=== PATIENT | male | born 1970 | race Caucasian/White ===

== ENCOUNTER → 2016-04-23 | Outpatient (REF) | payer BC, OTHER ==
[2016-04-23 12:27] LABS: MEAN CORPUSCULAR HEMOGLOBIN 28.2 pg (27.0-33.0); MEAN CORPUSCULAR VOLUME 82.9 fl (80.0-96.0); RED CELL DISTRIBUTION WIDTH 13.4 % (11.5-14.5); WHITE BLOOD COUNT 8.6 K/mm3 (4.0-10.0)
[2016-04-23 12:43] LABS: FREE T4 1.17 NG/DL (0.76-1.46); URIC ACID 6.8 MG/DL (3.5-7.2)
[2016-04-23 12:52] LABS: ERYTHROCYTE SEDIMENTATION RATE 1 mm/hr (0-15)
[2016-04-23 13:03] LABS: BASOPHILS 3 % (0-4); EOSINOPHILS 1 % (0-5)
[2016-04-25 00:06] LABS: Lyme Disease IgG/IgM Antibodie <0.91 ISR (0.00-0.90); Lyme Disease IgM Ab Quantitati <0.80 index (0.00-0.79)
== END ==
LOC: M LABDRAW1 11:37
PROVIDERS: ATTEND Orthopaedic Surgery
DX: M25.572 Pain in left ankle and joints of left foot (principal)

== ENCOUNTER 2016-06-29 16:07 | Emergency (ER) | payer BC, OTHER ==
[2016-06-29 17:08] LABS: BASO # 0.1 K/mm3 (0.0-0.2); EOS # 0.1 K/mm3 (0.0-0.50); EOS % 1.3 % (0.0-3.0); LARGE UNSTAINED CELL # 0.2 K/mm3 (0.0-0.4); LARGE UNSTAINED CELL % 3.1 % (0.0-4.0); LYMPH # 2.6 K/mm3 (1.5-4.5); MEAN CORPUSCULAR HEMOGLOBIN 28.5 pg (27.0-33.0); MEAN CORPUSCULAR HGB CONC 33.6 g/dl (32.0-36.5); MEAN CORPUSCULAR VOLUME 84.7 fl (80.0-96.0); MONO # 0.3 K/mm3 (0.0-0.8); MONO % 4.2 % (0.0-5.0); NEUTROPHILS # 4.3 K/mm3 (1.8-7.7); NEUTROPHILS % 56.4 % (36.0-66.0); PLATELET COUNT, AUTOMATED 195 k/mm3 (150-450); RED CELL DISTRIBUTION WIDTH 13.4 % (11.5-14.5); WHITE BLOOD COUNT 7.7 K/mm3 (4.0-10.0)
[2016-06-29 17:13] LABS: ALBUMIN 3.6 GM/DL (3.2-5.2); ALKALINE PHOSPHATASE 62 U/L (45-117); ALT/SGPT 91 U/L (12-78); ANION GAP 8 MEQ/L (8-16); AST/SGOT 41 U/L (15-37); BILIRUBIN,DIRECT < 0.1 MG/DL (0.0-0.2); BILIRUBIN,TOTAL 0.3 MG/DL (0.2-1.0); BLOOD UREA NITROGEN 20 MG/DL (7-18); CALCIUM LEVEL 8.1 MG/DL (8.5-10.1); CARBON DIOXIDE LEVEL 23 MEQ/L (21-32); CHLORIDE LEVEL 109 MEQ/L (98-107); CREATININE FOR GFR 0.91 MG/DL (0.70-1.30); GLOMERULAR FILTRATION RATE > 60.0 (>60); GLUCOSE, FASTING 103 MG/DL (70-105); POTASSIUM SERUM 3.9 MEQ/L (3.5-5.1); SODIUM LEVEL 140 MEQ/L (136-145); TOTAL PROTEIN 6.6 GM/DL (6.4-8.2)
--- NOTE | 2016-06-29 17:18 | REP ---
Chest one-view HISTORY: Chest pain Comparison: 06/11/2015 The lungs are clear. The heart is normal in size. The pulmonary vasculature is normal in appearance. Impression: No acute disease. Signed by Gurdeep Cho MD 06/29/2016 05:10 P
--- NOTE | 2016-06-29 18:32 | ECGEPIP ---
Stationary ECG Study [facility] - ED Test Date: 2016-06-29 Pat Name: NEETA GOODMAN Department: Room: - Gender: M Monitoring Analyst: gale : 1970 Requested By: DEANNA Meyer Order Number: [id number] Reading MD: Andrea Stewart Measurements Intervals [place] Rate: 79 P: 29 VA: 152 QRS: 2 QRSD: 104 T: 23 QT: 391 QTc: 449 Interpretive Statements [employer] R[employer]B Electronically Signed On 06-29-2016 18:31:45 EDT by Andrea Stewart
[2016-06-29 21:45] VITALS: BP 123/76
--- NOTE | 2016-06-30 05:54 | ECGEPIP ---
Stationary ECG Study [facility] - ED Test Date: 2016-06-29 Pat Name: NEETA GOODMAN Department: Room: - Gender: M Computer Support Specialist: MastersonB: 1970 Requested By: DEANNA Meyer Order Number: [id number] Reading MD: Andera Stewart Measurements Intervals [place] Rate: 66 P: 34 PA: 198 QRS: 19 QRSD: 96 T: 24 QT: 397 QTc: 416 Interpretive Statements [employer] RBBB SIMILAR TO PRIOR ON SAME DATE Electronically Signed On 06-30-2016 5:54:11 EDT by Andrea Stewart
== END 2016-06-29 21:55 | disposition home or self-care (01) ==
LOC: EDBD 16:07 → M ED 17:20
DX: R10.13 Epigastric pain (principal); R79.89 Other specified abnormal findings of blood chemistry; F17.210 Nicotine dependence, cigarettes, uncomplicated

== ENCOUNTER 2018-09-22 06:11 | Day surgery (SDC) | payer BC, OTHER ==
[~2018-09-22] VITALS: Ht 182.9 cm; Wt 109.8 kg
[2018-09-22] MEDS ORDERED: NS 1,000 ML IV ONE (07:00)
[2018-09-22] MEDS ORDERED: PROPOFOL 200 MG/20 ML VIAL As Ordered ONE ×2 (07:38→07:43)
[2018-09-22] MEDS ORDERED: LIDOCAINE 2% INJ 100 MG/5 ML SDV (FOR ANES.) As Ordered ONE (07:38)
--- NOTE | 2018-09-22 07:52 | ROOR ---
Patient Name: Wesley Hunt Procedure Date: 09/22/2018 7:34 AM Date of : 1970 Age: 48 Room: [facility] Gender: Male Note Status: Finalized Procedure: Colonoscopy Indications: Screening for colorectal malignant neoplasm Providers: Fransisco DUNHAM MD Referring MD: CALEB CHACON MD Requesting Provider: Medicines: Monitored Anesthesia Care Complications: No immediate complications. Procedure: Pre-Anesthesia Assessment: - The heart rate, respiratory rate, oxygen saturations, blood pressure, adequacy of pulmonary ventilation, and response to care were monitored throughout the procedure. The Colonoscope was introduced through the anus and advanced to the terminal ileum, with identification of the appendiceal orifice and IC valve. The colonoscopy was performed without difficulty. The patient tolerated the procedure well. The quality of the bowel preparation was adequate. Findings: The perianal and digital rectal examinations were normal. Small Internal Hemorrhoids. The entire examined colon appeared normal on direct and retroflexion views. Retroflexion in the right colon was performed. Impression: - Small Internal Hemorrhoids. - The entire colon is normal on direct and retroflexion views. - No specimens collected. Recommendation: - Repeat colonoscopy in 10 years for screening purposes. Fransisco Dunham MD Fransisco DUNHAM MD 09/22/2018 7:51:54 AM Electronically signed by Fransisco DUNHAM MD Number of Addenda: 0 Note Initiated On: 09/22/2018 7:34 AM Estimated Blood Loss: Estimated blood loss: none.
[2018-09-22 08:19] VITALS: BP 116/81
== END 2018-09-22 08:21 | disposition home or self-care (01) ==
LOC: M OPP 06:11
PROVIDERS: ATTEND Internal Medicine Gastroenterology
DX: Z12.11 Encounter for screening for malignant neoplasm of colon (principal); K64.8 Other hemorrhoids; Z88.5 Allergy status to narcotic agent; Z91.040 Latex allergy status; F17.210 Nicotine dependence, cigarettes, uncomplicated

== ENCOUNTER → 2020-07-26 | Outpatient (CLI) | payer BC, OTHER | LOC: M LABSMTC 08:29 | PROVIDERS: ATTEND Pediatrics | DX: Z20.822 Contact with and (suspected) exposure to COVID-19 (principal) ==

== ENCOUNTER → 2024-02-24 | Outpatient (CLI) | payer BC, OTHER ==
[~2024-02-24] MED LIST: LEVO1TAB40 PO; PRED20TA PO
== END ==
LOC: M WUC 14:11
PROVIDERS: ATTEND Nurse Practitioner Family
DX: M51.34 Other intervertebral disc degeneration, thoracic region (principal); J18.1 Lobar pneumonia, unspecified organism

== ENCOUNTER → 2024-02-28 | Outpatient (REF) | payer OTHER ==
[2024-03-02 20:28] LABS: LYME TOTAL ANTIBODY CIA <= 0.90 Index (<=0.90)
== END ==
LOC: M LAB REF 13:23
PROVIDERS: ATTEND Physician Assistant Medical
DX: R53.83 Other fatigue (principal); M54.9 Dorsalgia, unspecified; R06.02 Shortness of breath

== ENCOUNTER → 2024-02-28 | Outpatient (CLI) | payer BC | LOC: M RAD 10:28 | PROVIDERS: ATTEND Physician Assistant Medical | DX: J18.9 Pneumonia, unspecified organism (principal); R91.8 Other nonspecific abnormal finding of lung field; R06.02 Shortness of breath ==

== ENCOUNTER 2024-03-03 14:48 | Inpatient (IN) | payer BC, OTHER ==
[~2024-03-03] VITALS: Ht 182.9 cm; Wt 108.0 kg
[2024-03-03 16:03] LABS: BASO # 0.1 10^3/uL (0.0-0.2); BASO % 0.9 % (0.0-1.0); EOS % 0.2 % (0.0-3.0); HEMATOCRIT 44.1 % (42.0-52.0); HEMOGLOBIN 14.7 g/dl (13.5-17.5); LYMPH # 1.4 10^3/uL (1.5-5.0); LYMPH % 9.5 % (24.0-44.0); MEAN CORPUSCULAR HEMOGLOBIN 27.2 pg (27.0-33.0); MEAN CORPUSCULAR HGB CONC 33.3 g/dl (32.0-36.5); MEAN CORPUSCULAR VOLUME 81.7 fl (80.0-96.0); MONO # 0.7 10^3/uL (0.0-0.8); MONO % 5.1 % (2.0-8.0); NEUTROPHILS # 11.9 10^3/uL (1.5-8.5); NEUTROPHILS % 83.5 % (36.0-66.0); PLATELET COUNT, AUTOMATED 239 10^3/uL (150-450); WHITE BLOOD COUNT 14.2 10^3/uL (4.0-10.0)
[2024-03-03] MEDS ORDERED: ISOVUE-370 76% 100ML VIAL As Ordered ONE (16:03)
[2024-03-03 16:35] LABS: PROCALCITONIN 0.08 ng/ml
[2024-03-03] MEDS ORDERED: HEPARIN SOD (PORCINE) 5000UNITS/ML 1ML VIAL/SYRINGE IV PRN ×2 (17:50→22:45)
[2024-03-03] MEDS ORDERED: LevoFLOXacin IV 750 MG in IV 1 EA IV ONE (17:55)
[2024-03-03 18:12] LABS: INR 1.18; PROTHROMBIN TIME 15.3 SECONDS (12.5-14.5)
[2024-03-03] MEDS: HEPARIN SOD (PORCINE) 5000UNITS/ML 1ML VIAL/SYRINGE IV ONE (18:17)
[2024-03-03] MEDS: HEPARIN DRIP 25,000 UNITS in IV 1 EA IV SCH (18:20)
[2024-03-03] MEDS: PIPERACILLIN/TAZOBACTAM SOD 4.5 GM in DEXTROSE 5% (D5W) ADV/MINI-BAG 50 ML IV ONE (19:56)
[2024-03-03] MEDS ORDERED: ALBUTEROL 90 MCG/ACT 8GM HFA INHALER INH PRN (20:40)
[2024-03-03] MEDS ORDERED: MAALOX 30 ML SUSP *UDC PO PRN (20:40)
[2024-03-03] MEDS ORDERED: ACETAMINOPHEN 325 MG TAB PO PRN (20:40)
[2024-03-03] MEDS ORDERED: MOM 30ML SUSPENSION UDC PO PRN (20:40)
[2024-03-03] MEDS ORDERED: LORazepam 2 MG/ML 1ML VIAL IV PRN (20:40)
[2024-03-03] MEDS ORDERED: PRED20TA PO (21:13)
[2024-03-03] MEDS ORDERED: LEVO1TAB40 PO (21:13)
[2024-03-03] MEDS ORDERED: HOME MED LIST COMPLETE! XX SCH (21:15)
[2024-03-03 22:35] VITALS: BP 115/75; TEMP 97.4; O2SAT 94
[2024-03-03] MEDS: DOCUSATE SODIUM 100MG CAPSULE PO SCH (22:43)
[2024-03-03] MEDS: guaiFENesin ER TABLET 600 MG TAB PO SCH (22:43)
[2024-03-03] MEDS: DOXYCYCLINE HYCLATE 100 MG in DEXTROSE 5% (D5W) MINI-BAG PLU 100 ML IV SCH (23:21)
[2024-03-04] VITALS (9 sets, daily range): BP systolic 107–132; BP diastolic 66–93; TEMP 97.6–98.9; O2SAT 93–95
[2024-03-04] MEDS ORDERED: IPRATROPIUM 0.5MG/ALBUTEROL 2.5MG INH SOL UD 3ML (DUONEB) NEB SCH
[2024-03-04] MEDS: LEVALBUTEROL 1.25MG 0.5ML CONCENTRATE NEB INH SCH (01:05)
[2024-03-04] MEDS: PIPERACILLIN/TAZOBACTAM SOD 4.5 GM in DEXTROSE 5% (D5W) ADV/MINI-BAG 50 ML IV SCH (02:47)
[2024-03-04 06:23] LABS: HEMATOCRIT 40.7 % (42.0-52.0); HEMOGLOBIN 13.5 g/dl (13.5-17.5); MEAN CORPUSCULAR HEMOGLOBIN 27.2 pg (27.0-33.0); MEAN CORPUSCULAR HGB CONC 33.2 g/dl (32.0-36.5); MEAN CORPUSCULAR VOLUME 82.1 fl (80.0-96.0); PLATELET COUNT, AUTOMATED 246 10^3/uL (150-450); RED BLOOD COUNT 4.96 10^6/uL (4.30-6.10); WHITE BLOOD COUNT 12.2 10^3/uL (4.0-10.0)
[2024-03-04] MEDS: HEPARIN DRIP 25,000 UNITS in IV 1 EA IV SCH (06:24)
[2024-03-04 06:45] LABS: ALKALINE PHOSPHATASE 116 U/L (40-129); ALT/SGPT 20 U/L (7.0-40); AST/SGOT 22 U/L (<34); BILIRUBIN,TOTAL 0.7 MG/DL (0.3-1.2); BLOOD UREA NITROGEN 28 MG/DL (9-23); CALCIUM LEVEL 9.3 MG/DL (8.5-10.1); CARBON DIOXIDE LEVEL 21 MMOL/L (20-31); CHLORIDE LEVEL 105 MMOL/L (98-107); CREATININE FOR GFR 1.01 MG/DL (0.70-1.30); GLOMERULAR FILTRATION RATE > 60.0 (>56); GLUCOSE, FASTING 126 MG/DL (60-100); MAGNESIUM LEVEL 1.9 MG/DL (1.8-2.4); POTASSIUM SERUM 4.3 MMOL/L (3.5-5.1); SODIUM LEVEL 139 MMOL/L (136-145); TOTAL PROTEIN 6.2 G/DL (5.7-8.2)
[2024-03-04 06:52] LABS: PROCALCITONIN 0.07 ng/ml
[2024-03-04] MEDS: PANTOPRAZOLE 40MG VIAL IV SCH (08:02)
[2024-03-04] MEDS: predniSONE 20 MG TAB PO SCH (09:15)
[2024-03-04] MEDS: IPRATROPIUM 0.02% SOLN 0.5MG 2.5ML NEB INH SCH (10:00)
[2024-03-05] VITALS (17 sets, daily range): BP systolic 118–139; BP diastolic 66–88; TEMP 97.3–98.2; O2SAT 91–100
[2024-03-05 06:33] LABS: HEMATOCRIT 38.7 % (42.0-52.0); HEMOGLOBIN 12.8 g/dl (13.5-17.5); MEAN CORPUSCULAR HEMOGLOBIN 27.4 pg (27.0-33.0); MEAN CORPUSCULAR HGB CONC 33.1 g/dl (32.0-36.5); MEAN CORPUSCULAR VOLUME 82.9 fl (80.0-96.0); PLATELET COUNT, AUTOMATED 261 10^3/uL (150-450); RED BLOOD COUNT 4.67 10^6/uL (4.30-6.10); WHITE BLOOD COUNT 12.2 10^3/uL (4.0-10.0)
[2024-03-05 07:00] LABS: BLOOD UREA NITROGEN 26 MG/DL (9-23); CALCIUM LEVEL 8.9 MG/DL (8.5-10.1); CARBON DIOXIDE LEVEL 22 MMOL/L (20-31); CHLORIDE LEVEL 106 MMOL/L (98-107); CREATININE FOR GFR 1.07 MG/DL (0.70-1.30); GLOMERULAR FILTRATION RATE > 60.0 (>56); GLUCOSE, FASTING 114 MG/DL (60-100); POTASSIUM SERUM 4.1 MMOL/L (3.5-5.1); SODIUM LEVEL 138 MMOL/L (136-145)
[2024-03-05] MEDS: NS (Normal Saline) 0.9% 1,000 ML IV SCH (07:30)
[2024-03-05] MEDS ORDERED: HEPARIN 25,000 UNITS/250 ML D5W BAG (100 UNITS/ML) As Ordered ONE (07:34)
[2024-03-05] MEDS ORDERED: ISOVUE-300 61% 100ML VIAL As Ordered ONE (07:58)
[2024-03-05] MEDS ORDERED: HEPARIN 1,000UNITS/ML 10ML VIAL (FOR RADIOLOGY & DIALYSIS ONLY) As Ordered ONE (07:58)
[2024-03-05] MEDS ORDERED: fentaNYL 100 MCG/2 ML INJECTION As Ordered ONE (07:59)
[2024-03-05] MEDS ORDERED: MIDAZOLAM INJ 2MG/2ML VIAL As Ordered ONE (08:00)
[2024-03-05] MEDS ORDERED: LIDOCAINE 1% MDV 20ML VIAL As Ordered ONE (08:00)
[2024-03-05] MEDS: NICOTINE 14 MG/24 HR TRANSDERMAL TD SCH (09:00)
[2024-03-05] MEDS ORDERED: NS (Normal Saline) 0.9% 1,000 ML IV SCH (09:45)
[2024-03-05] MEDS: DOXYCYCLINE HYCLATE 100MG TABLET PO SCH (20:38)
[2024-03-06] VITALS (10 sets, daily range): BP systolic 116–122; BP diastolic 56–81; TEMP 97.6–98.6; O2SAT 90–94
[2024-03-06 05:39] LABS: HEMATOCRIT 36.3 % (42.0-52.0); HEMOGLOBIN 12.1 g/dl (13.5-17.5); MEAN CORPUSCULAR HEMOGLOBIN 27.3 pg (27.0-33.0); MEAN CORPUSCULAR HGB CONC 33.3 g/dl (32.0-36.5); MEAN CORPUSCULAR VOLUME 81.9 fl (80.0-96.0); PLATELET COUNT, AUTOMATED 275 10^3/uL (150-450); RED BLOOD COUNT 4.43 10^6/uL (4.30-6.10); WHITE BLOOD COUNT 10.3 10^3/uL (4.0-10.0)
[2024-03-06 06:11] LABS: BLOOD UREA NITROGEN 23 MG/DL (9-23); CALCIUM LEVEL 8.7 MG/DL (8.5-10.1); CARBON DIOXIDE LEVEL 24 MMOL/L (20-31); CHLORIDE LEVEL 106 MMOL/L (98-107); CREATININE FOR GFR 1.03 MG/DL (0.70-1.30); GLOMERULAR FILTRATION RATE > 60.0 (>56); GLUCOSE, FASTING 106 MG/DL (60-100); POTASSIUM SERUM 4.1 MMOL/L (3.5-5.1); SODIUM LEVEL 139 MMOL/L (136-145)
[2024-03-06] MEDS ORDERED: LEVALBUTEROL 1.25MG 0.5ML CONCENTRATE NEB INH PRN (09:25)
[2024-03-06] MEDS: APIXABAN 5 MG TAB (ELIQUIS) PO SCH (10:08)
[2024-03-06] MEDS: SENOKOT S TAB PO SCH (10:09)
[2024-03-06] MEDS: MIRALAX *UNIT DOSE* 17GM PACKET PO SCH (10:09)
[2024-03-06] MEDS: SYMBICORT 160/4.5MCG INHALER 6GM INH SCH (11:18)
[2024-03-06] MEDS: TIOTROPIUM INHALER/CAPSULE (SPIRIVA) INH SCH (11:18)
[2024-03-06] MEDS ORDERED: SYMB16INH INH ×2 (13:04→15:50)
[2024-03-06] MEDS ORDERED: ELIQ5TAB PO ×2 (13:04→15:50)
[2024-03-06] MEDS ORDERED: TIOT18INH INH (13:04)
[2024-03-06] MEDS ORDERED: CEFD1CAP9 PO (13:04)
[2024-03-06] MEDS ORDERED: DOXY100T PO (13:04)
[2024-03-06] MEDS ORDERED: OMEP-312 PO (13:04)
[2024-03-06] MEDS ORDERED: PRED20TA PO (13:04)
[2024-03-06] MEDS ORDERED: MIRA33506 PO (13:04)
[2024-03-06] MEDS ORDERED: AMOX875T2 PO (13:53)
[2024-03-06] MEDS ORDERED: SPIR1CAP INH (15:50)
[2024-03-06] MEDS ORDERED: DOXY100C3 PO (15:50)
[2024-03-07] MEDS ORDERED: predniSONE 10MG TAB PO SCH (09:00)
[2024-03-08] MEDS ORDERED: ACET-683 PO (14:57)
[2024-03-08] MEDS ORDERED: OXYC1TAB23 PO (16:48)
[2024-03-08] MEDS ORDERED: DEXA4TA PO (17:22)
[2024-03-08 19:12] LABS: URINE STREP PNEUMONIAE ANTIGEN NOT DETECTED (NOT DETECT)
== END 2024-03-06 16:53 | disposition home or self-care (01) | DRG 950 ==
LOC: M ED 14:48 → M ED INP 20:39 → M ICU 22:31
PROVIDERS: ADMIT Student in an Organized Health Care Education/Training Program; ATTEND Student in an Organized Health Care Education/Training Program
PROC: 02CR4ZZ Extirpation of Matter from Left Pulmonary Artery, Percutaneous Endoscopic Approach (ICD-10-PCS; 2024-03-05)
PROC: 02C Heart and Great Vessels, Extirpation (ICD-10-PCS; 2024-03-05)
PROC: 0KBG3ZX Excision of Left Trunk Muscle, Percutaneous Approach, Diagnostic (ICD-10-PCS; principal; 2024-03-05 08:00)
PROC: [UNRECOGNIZED PROCEDURE] (2024-03-05 12:15)
DX: I26.99 Other pulmonary embolism without acute cor pulmonale (principal); J96.01 Acute respiratory failure with hypoxia; J18.9 Pneumonia, unspecified organism; I82.401 Acute embolism and thrombosis of unspecified deep veins of right lower extremity; C34.90 Malignant neoplasm of unspecified part of unspecified bronchus or lung; Z79.2 Long term (current) use of antibiotics; Z79.52 Long term (current) use of systemic steroids; Z88.1 Allergy status to other antibiotic agents; Z88.6 Allergy status to analgesic agent; Z88.5 Allergy status to narcotic agent; Z88.8 Allergy status to other drugs, medicaments and biological substances; Z91.040 Latex allergy status; Z87.891 Personal history of nicotine dependence

== ENCOUNTER → 2024-03-06 | Outpatient (RCR) | payer BC ==
[~2024-03-06] MED LIST changes: +ACET-683 PO; +AMOX875T2 PO; +CEFD1CAP9 PO; +DEXA4TA PO; +DOXY100C3 PO; +DOXY100T PO; +ELIQ5TAB PO; +FOLI1TAB11 PO; +MIRA33506 PO; +OMEP-312 PO; +OXYC-141 PO; +OXYC1TAB23 PO; +SPIR1CAP INH; +SYMB16INH INH; +TIOT18INH INH
== END ==
LOC: M ONCR 13:59
PROVIDERS: ATTEND General Practice
DX: Z51.0 Encounter for antineoplastic radiation therapy (principal); C34.31 Malignant neoplasm of lower lobe, right bronchus or lung

== ENCOUNTER → 2024-03-14 | Outpatient (CLI) | payer BC ==
[~2024-03-14] MED LIST changes: +MORP-69 PO
== END ==
LOC: M RAD 15:23
PROVIDERS: ATTEND General Practice
DX: C34.31 Malignant neoplasm of lower lobe, right bronchus or lung (principal); N28.1 Cyst of kidney, acquired; R93.2 Abnormal findings on diagnostic imaging of liver and biliary tract; K40.20 Bilateral inguinal hernia, without obstruction or gangrene, not specified as recurrent; I70.0 Atherosclerosis of aorta; C79.51 Secondary malignant neoplasm of bone; K57.90 Diverticulosis of intestine, part unspecified, without perforation or abscess without bleeding; K59.00 Constipation, unspecified

== ENCOUNTER → 2024-03-23 | Outpatient (REF) | payer BC, OTHER ==
[~2024-03-23] MED LIST changes: +ALBU2.5V10 INH; +COLA100C5 PO; +FENT12DI8 TOP; +PRED5TA PO; +SENN-186 PO
== END ==
LOC: M LAB REF 17:04
PROVIDERS: ATTEND Internal Medicine Pulmonary Disease
DX: I26.09 Other pulmonary embolism with acute cor pulmonale (principal)

== ENCOUNTER 2024-03-25 21:18 | Inpatient (IN) | payer BC, OTHER ==
[~2024-03-25] VITALS: Ht 182.9 cm; Wt 106.8 kg
[~2024-03-25 21:18] MED LIST changes: -ALBU2.5V10 INH; -COLA100C5 PO; -PRED5TA PO; -SENN-186 PO
[2024-03-25 22:31] LABS: BASO % 0.6 % (0.0-1.0); EOS % 0.3 % (0.0-3.0); HEMATOCRIT 36.2 % (42.0-52.0); HEMOGLOBIN 11.8 g/dl (13.5-17.5); LYMPH # 0.3 10^3/uL (1.5-5.0); LYMPH % 4.4 % (24.0-44.0); MEAN CORPUSCULAR HEMOGLOBIN 26.9 pg (27.0-33.0); MEAN CORPUSCULAR HGB CONC 32.6 g/dl (32.0-36.5); MEAN CORPUSCULAR VOLUME 82.6 fl (80.0-96.0); MONO # 0.5 10^3/uL (0.0-0.8); MONO % 7.3 % (2.0-8.0); NEUTROPHILS # 6.1 10^3/uL (1.5-8.5); NEUTROPHILS % 87.1 % (36.0-66.0); PLATELET COUNT, AUTOMATED 171 10^3/uL (150-450); RED BLOOD COUNT 4.38 10^6/uL (4.30-6.10)
[2024-03-25 22:42] LABS: PARTIAL THROMBOPLASTIN TIME 37.9 SECONDS (24.8-34.2)
[2024-03-25 23:06] LABS: LIPASE 21 U/L (12-53)
[2024-03-25 23:08] LABS: ALKALINE PHOSPHATASE 162 U/L (40-129); ALT/SGPT 41 U/L (7.0-40); AST/SGOT 39 U/L (<34); BILIRUBIN,DIRECT 0.1 MG/DL (<0.4); BILIRUBIN,TOTAL 0.5 MG/DL (0.3-1.2); BLOOD UREA NITROGEN 31 MG/DL (9-23); CALCIUM LEVEL 9.3 MG/DL (8.5-10.1); CARBON DIOXIDE LEVEL 25 MMOL/L (20-31); CHLORIDE LEVEL 103 MMOL/L (98-107); CK-MB VALUE MASS < 1.0 NG/ML (<3.6); CREATININE FOR GFR 0.94 MG/DL (0.70-1.30); GLOMERULAR FILTRATION RATE > 60.0 (>56); GLUCOSE, FASTING 139 MG/DL (60-100); POTASSIUM SERUM 4.8 MMOL/L (3.5-5.1); SODIUM LEVEL 138 MMOL/L (136-145); TOTAL PROTEIN 6.7 G/DL (5.7-8.2)
[2024-03-25 23:11] LABS: CPK CREATINE PHOSPHOKINASE 34 U/L (46-171); MB/CK RELATIVE INDEX 2.94 (< OR =4)
[2024-03-25 23:41] LABS: INR 1.29; PROTHROMBIN TIME 16.4 SECONDS (12.5-14.5)
[2024-03-26 00:01] LABS: CK-MB VALUE MASS < 1.0 NG/ML (<3.6)
[2024-03-26 00:02] LABS: CPK CREATINE PHOSPHOKINASE 23 U/L (46-171); MB/CK RELATIVE INDEX 4.34 (< OR =4)
[2024-03-26] MEDS ORDERED: ISOVUE-370 76% 100ML VIAL As Ordered ONE (00:02)
[2024-03-26 00:11] LABS: RSV AMPLIFICATION NEGATIVE (NEGATIVE)
[2024-03-26] MEDS: GASTROGRAFIN SOLUTION 30ML PO SCH (01:58)
[2024-03-26] MEDS ORDERED: HEPARIN DRIP 25,000 UNITS in IV 1 EA IV SCH (04:15)
[2024-03-26] MEDS ORDERED: HEPARIN SOD (PORCINE) 5000UNITS/ML 1ML VIAL/SYRINGE IV ONE (04:15)
[2024-03-26] MEDS ORDERED: HEPARIN SOD (PORCINE) 5000UNITS/ML 1ML VIAL/SYRINGE IV PRN (04:35)
[2024-03-26] MEDS ORDERED: SENN-186 PO (05:35)
[2024-03-26] MEDS ORDERED: PRED5TA PO (05:35)
[2024-03-26] MEDS ORDERED: COLA100C5 PO (05:35)
[2024-03-26] MEDS ORDERED: ALBU2.5V10 INH (05:37)
[2024-03-26] MEDS ORDERED: HOME MED LIST COMPLETE! XX SCH ×2 (05:40→05:45)
[2024-03-26] MEDS: PERCOCET 5MG/325MG TAB PO ONE (05:42)
[2024-03-26] MEDS ORDERED: ELIQ5TAB PO (05:42)
[2024-03-26] MEDS: SYMBICORT 160/4.5MCG INHALER 6GM INH SCH (08:00)
[2024-03-26] MEDS ORDERED: MAALOX 30 ML SUSP *UDC PO PRN (08:50)
[2024-03-26] MEDS: TIOTROPIUM INHALER/CAPSULE (SPIRIVA) INH SCH (09:00)
[2024-03-26] MEDS ORDERED: DICLOFENAC EPOLAMINE 1.3% PATCH TOP SCH (09:00)
[2024-03-26] MEDS: SENNA 8.6 MG TAB (SENOKOT) PO SCH (09:54)
[2024-03-26] MEDS: FOLIC ACID 1MG TAB PO SCH (09:54)
[2024-03-26] MEDS: DOCUSATE SODIUM 100MG CAPSULE PO SCH (09:54)
[2024-03-26] MEDS: predniSONE 5 MG TAB PO SCH (09:54)
[2024-03-26] MEDS: APIXABAN 5 MG TAB (ELIQUIS) PO SCH (09:54)
[2024-03-26] MEDS: MOM 30ML SUSPENSION UDC PO PRN (09:56)
[2024-03-26 10:01] LABS: BLOOD UREA NITROGEN 28 MG/DL (9-23); CALCIUM LEVEL 9.1 MG/DL (8.5-10.1); CARBON DIOXIDE LEVEL 27 MMOL/L (20-31); CHLORIDE LEVEL 103 MMOL/L (98-107); CREATININE FOR GFR 0.94 MG/DL (0.70-1.30); GLOMERULAR FILTRATION RATE > 60.0 (>56); GLUCOSE, FASTING 116 MG/DL (60-100); POTASSIUM SERUM 4.2 MMOL/L (3.5-5.1); SODIUM LEVEL 138 MMOL/L (136-145)
[2024-03-26 10:07] LABS: BASO # 0.1 10^3/uL (0.0-0.2); BASO % 0.9 % (0.0-1.0); EOS # 0.1 10^3/uL (0.0-0.5); EOS % 0.9 % (0.0-3.0); HEMATOCRIT 35.5 % (42.0-52.0); HEMOGLOBIN 11.4 g/dl (13.5-17.5); LYMPH # 0.5 10^3/uL (1.5-5.0); LYMPH % 9.6 % (24.0-44.0); MEAN CORPUSCULAR HEMOGLOBIN 26.9 pg (27.0-33.0); MEAN CORPUSCULAR HGB CONC 32.1 g/dl (32.0-36.5); MEAN CORPUSCULAR VOLUME 83.7 fl (80.0-96.0); MONO # 0.6 10^3/uL (0.0-0.8); MONO % 11.8 % (2.0-8.0); NEUTROPHILS # 4.1 10^3/uL (1.5-8.5); NEUTROPHILS % 76.1 % (36.0-66.0); PLATELET COUNT, AUTOMATED 166 10^3/uL (150-450); RED BLOOD COUNT 4.24 10^6/uL (4.30-6.10); WHITE BLOOD COUNT 5.4 10^3/uL (4.0-10.0)
[2024-03-26] MEDS: ACETAMINOPHEN 325 MG TAB PO PRN (10:12)
[2024-03-26] MEDS: PERCOCET 5MG/325MG TAB PO PRN (13:30)
[2024-03-26 15:41] VITALS: BP 144/82; O2SAT 98
[2024-03-26 15:42] VITALS: TEMP 97
[2024-03-29] MEDS ORDERED: OXYC10TA12 PO (15:46)
[2024-03-30] MEDS ORDERED: FENTANYL REMOVAL DOCUMENTATION MISC XX SCH (18:00)
== END 2024-03-26 16:05 | disposition home or self-care (01) | DRG 254 ==
LOC: M ED 21:18 → M ED INP 03-26 08:48
PROVIDERS: ADMIT Internal Medicine Nephrology; ATTEND Internal Medicine Nephrology
DX: K59.00 Constipation, unspecified (principal); C34.91 Malignant neoplasm of unspecified part of right bronchus or lung; C79.51 Secondary malignant neoplasm of bone; C79.89 Secondary malignant neoplasm of other specified sites; C78.7 Secondary malignant neoplasm of liver and intrahepatic bile duct; C79.70 Secondary malignant neoplasm of unspecified adrenal gland; I27.82 Chronic pulmonary embolism; J44.9 Chronic obstructive pulmonary disease, unspecified; F17.200 Nicotine dependence, unspecified, uncomplicated; G89.3 Neoplasm related pain (acute) (chronic); Z79.51 Long term (current) use of inhaled steroids; Z79.01 Long term (current) use of anticoagulants; Z79.52 Long term (current) use of systemic steroids; Z79.899 Other long term (current) drug therapy; Z88.5 Allergy status to narcotic agent; Z88.8 Allergy status to other drugs, medicaments and biological substances; Z86.718 Personal history of other venous thrombosis and embolism; Z91.040 Latex allergy status; Z88.6 Allergy status to analgesic agent

== ENCOUNTER → 2024-03-27 | Outpatient (CLI) | payer BC ==
[~2024-03-27] MED LIST changes: +ALBU2.5V10 INH; +COLA100C5 PO; +PRED5TA PO; +SENN-186 PO
== END ==
LOC: M PLARAD 11:22
PROVIDERS: ATTEND Specialist
DX: C34.31 Malignant neoplasm of lower lobe, right bronchus or lung (principal); C77.2 Secondary and unspecified malignant neoplasm of intra-abdominal lymph nodes; C79.89 Secondary malignant neoplasm of other specified sites; C79.51 Secondary malignant neoplasm of bone
CPT/HCPCS: 78815; A9552

== ENCOUNTER → 2024-03-29 | Outpatient (CLI) | payer BC ==
[~2024-03-29] MED LIST changes: +OXYC10TA12 PO; +PROHANCE 279.3MG/ML 15ML VIAL As Ordered ONE; +PROHANCE 279.3MG/ML 5ML VIAL As Ordered ONE
== END ==
LOC: M RAD 06:50
PROVIDERS: ATTEND Radiology Radiation Oncology
DX: C34.31 Malignant neoplasm of lower lobe, right bronchus or lung (principal); C79.31 Secondary malignant neoplasm of brain
CPT/HCPCS: 70553; A9576

== ENCOUNTER 2024-04-04 11:08 | Outpatient (RCR) | payer BC ==
[~2024-04-04 11:08] MED LIST changes: -ISOVUE-300 61% 100ML VIAL As Ordered ONE; -LIDOCAINE 1% MDV 20ML VIAL As Ordered ONE; -OMEP-173 PO; -POLY17PO18 PO
[2024-04-06] MEDS ORDERED: MORP-69 PO (08:09)
[2024-04-06] MEDS ORDERED: SPIR1CAP INH (08:09)
[2024-04-06] MEDS ORDERED: PRED20TA PO (08:09)
[2024-04-06] MEDS ORDERED: OXYC1TAB23 PO (08:09)
[2024-04-06] MEDS ORDERED: POLY17PO18 PO (08:09)
[2024-04-06] MEDS ORDERED: OMEP-173 PO (08:09)
[2024-04-06] MEDS ORDERED: FOLI1TAB11 PO (08:09)
[2024-04-06] MEDS ORDERED: OXYC10TA12 PO (08:09)
== END 2024-04-06 ==
LOC: M ONCR 11:08
PROVIDERS: ATTEND General Practice
DX: Z51.0 Encounter for antineoplastic radiation therapy (principal); C79.31 Secondary malignant neoplasm of brain

== ENCOUNTER → 2024-04-04 | Outpatient (POV) | payer BC ==
[~2024-04-04] VITALS: Ht 182.9 cm; Wt 103.6 kg
[~2024-04-04] MED LIST changes: +ISOVUE-300 61% 100ML VIAL As Ordered ONE; +LIDOCAINE 1% MDV 20ML VIAL As Ordered ONE; +OMEP-173 PO; +POLY17PO18 PO; -PROHANCE 279.3MG/ML 15ML VIAL As Ordered ONE; -PROHANCE 279.3MG/ML 5ML VIAL As Ordered ONE
[2024-04-04 13:00] VITALS: BP 132/68; O2SAT 91
== END ==
LOC: M IRPOV 12:38
PROVIDERS: ATTEND Radiology Diagnostic Radiology
DX: C34.90 Malignant neoplasm of unspecified part of unspecified bronchus or lung (principal); I26.99 Other pulmonary embolism without acute cor pulmonale; M25.511 Pain in right shoulder; C79.51 Secondary malignant neoplasm of bone; C79.89 Secondary malignant neoplasm of other specified sites; Z79.01 Long term (current) use of anticoagulants; Z79.891 Long term (current) use of opiate analgesic; Z86.718 Personal history of other venous thrombosis and embolism; Z88.1 Allergy status to other antibiotic agents; Z88.5 Allergy status to narcotic agent; Z88.6 Allergy status to analgesic agent; Z88.8 Allergy status to other drugs, medicaments and biological substances; Z91.040 Latex allergy status

== ENCOUNTER 2024-04-06 01:37 | Inpatient (IN) | payer BC ==
[2024-04-06] VITALS (16 sets, daily range): BP systolic 125–152; BP diastolic 70–88; TEMP 98.3–99.5; O2SAT 91–97
[~2024-04-06] VITALS: Ht 182.9 cm; Wt 95.0 kg
[~2024-04-06 01:37] MED LIST changes: -OMEP-173 PO; -POLY17PO18 PO
[2024-04-06] MEDS: ACETAMINOPHEN *IV* 1,000 MG in IV 1 EA IV ONE (02:08)
[2024-04-06 02:20] LABS: ABG BASE EXCESS 2.1 (-2.0-2.0); ABG HCO3 24.9 MMOL/L (22.0-26.0); ABG O2 SATURATION 91.6 % (95.0-99.0); ABG PARTIAL PRESSURE CO2 32.3 mmHg (35.0-45.0); ABG PARTIAL PRESSURE O2 59.5 mmHg (75.0-100.0); ABG STANDARD HCO3 26.2 MMOL/L. (22.0-26.0); ABG TOTAL CO2 25.8 MMOL/L (22.0-29.0); ABG pH (ARTERIAL) 7.504 UNITS (7.350-7.450)
[2024-04-06 02:24] LABS: BASO # 0.1 10^3/uL (0.0-0.2); BASO % 0.7 % (0.0-1.0); EOS % 0.1 % (0.0-3.0); HEMATOCRIT 31.9 % (42.0-52.0); HEMOGLOBIN 10.3 g/dl (13.5-17.5); LYMPH # 0.4 10^3/uL (1.5-5.0); LYMPH % 6.3 % (24.0-44.0); MEAN CORPUSCULAR HEMOGLOBIN 26.9 pg (27.0-33.0); MEAN CORPUSCULAR HGB CONC 32.3 g/dl (32.0-36.5); MEAN CORPUSCULAR VOLUME 83.3 fl (80.0-96.0); MONO # 0.4 10^3/uL (0.0-0.8); MONO % 5.1 % (2.0-8.0); NEUTROPHILS % 87.2 % (36.0-66.0); PLATELET COUNT, AUTOMATED 225 10^3/uL (150-450); RED BLOOD COUNT 3.83 10^6/uL (4.30-6.10); WHITE BLOOD COUNT 6.9 10^3/uL (4.0-10.0)
[2024-04-06] MEDS: NS 500 ML IV ONE (02:30)
[2024-04-06 02:35] LABS: INR 1.32; PROTHROMBIN TIME 16.7 SECONDS (12.5-14.5)
[2024-04-06 02:50] LABS: ALBUMIN 2.4 G/DL (3.2-5.2); ALKALINE PHOSPHATASE 255 U/L (40-129); ALT/SGPT 107 U/L (7.0-40); AST/SGOT 92 U/L (<34); BILIRUBIN,DIRECT 0.2 MG/DL (<0.4); BILIRUBIN,TOTAL 0.7 MG/DL (0.3-1.2); BLOOD UREA NITROGEN 29 MG/DL (9-23); CALCIUM LEVEL 8.6 MG/DL (8.5-10.1); CARBON DIOXIDE LEVEL 25 MMOL/L (20-31); CHLORIDE LEVEL 100 MMOL/L (98-107); CREATININE FOR GFR 1.14 MG/DL (0.70-1.30); GLOMERULAR FILTRATION RATE > 60.0 (>56); GLUCOSE, FASTING 127 MG/DL (60-100); POTASSIUM SERUM 4.4 MMOL/L (3.5-5.1); SODIUM LEVEL 138 MMOL/L (136-145); TOTAL PROTEIN 6.1 G/DL (5.7-8.2)
[2024-04-06 03:28] LABS: PARTIAL THROMBOPLASTIN TIME 37.5 SECONDS (24.8-34.2)
[2024-04-06] MEDS: LEVALBUTEROL 1.25MG 0.5ML CONCENTRATE NEB NEB ONE ×2 (03:34→03:35)
[2024-04-06 03:35] LABS: CK-MB VALUE MASS < 1.0 NG/ML (<3.6)
[2024-04-06 03:37] LABS: CPK CREATINE PHOSPHOKINASE 28 U/L (46-171); MB/CK RELATIVE INDEX 3.57 (< OR =4)
[2024-04-06] MEDS ORDERED: FUROSEMIDE 100MG/10ML VIAL IV ONE (03:40)
[2024-04-06] MEDS: [UNRECOGNIZED DRUG - OTHER] IV ONE (03:56)
[2024-04-06] MEDS: NS 0.9% IV ONE (03:56)
[2024-04-06] MEDS ORDERED: ISOVUE-370 76% 100ML VIAL As Ordered ONE (04:03)
[2024-04-06 04:22] LABS: PROCALCITONIN 0.31 ng/ml
[2024-04-06] MEDS ORDERED: HEPARIN SOD (PORCINE) 5000UNITS/ML 1ML VIAL/SYRINGE IV PRN ×2 (05:40→12:00)
[2024-04-06 05:52] LABS: KETONE, URINE MANUAL REFLEX NEGATIVE (NEGATIVE); NITRITE, URINE MANUAL RFX NEGATIVE (NEGATIVE); PROTEIN, URINE MANUAL REFLEX NEGATIVE (NEGATIVE); SP GRAVITY,URINE MANUAL REFLEX 1.015 (1.002-1.035); UROBILINOGEN, UA MANUAL REFLEX NORMAL (NORMAL)
[2024-04-06] MEDS: PIPERACILLIN/TAZOBACTAM SOD 4.5 GM in DEXTROSE 5% (D5W) ADV/MINI-BAG 50 ML IV ONE (05:54)
[2024-04-06] MEDS: HEPARIN DRIP 25,000 UNITS in IV 1 EA IV SCH ×2 (06:09→19:25)
[2024-04-06 06:25] LABS: HEMATOCRIT 29.9 % (42.0-52.0); HEMOGLOBIN 9.4 g/dl (13.5-17.5); MEAN CORPUSCULAR HEMOGLOBIN 26.7 pg (27.0-33.0); MEAN CORPUSCULAR HGB CONC 31.4 g/dl (32.0-36.5); MEAN CORPUSCULAR VOLUME 84.9 fl (80.0-96.0); PLATELET COUNT, AUTOMATED 203 10^3/uL (150-450); RED BLOOD COUNT 3.52 10^6/uL (4.30-6.10); WHITE BLOOD COUNT 5.5 10^3/uL (4.0-10.0)
[2024-04-06] MEDS ORDERED: OMEP-173 PO (08:09)
[2024-04-06] MEDS ORDERED: FOLI1TAB11 PO (08:09)
[2024-04-06] MEDS ORDERED: OXYC10TA12 PO (08:09)
[2024-04-06] MEDS ORDERED: OXYC1TAB23 PO (08:09)
[2024-04-06] MEDS ORDERED: SPIR1CAP INH (08:09)
[2024-04-06] MEDS ORDERED: MORP-69 PO (08:09)
[2024-04-06] MEDS ORDERED: PRED20TA PO (08:09)
[2024-04-06] MEDS ORDERED: POLY17PO18 PO (08:09)
[2024-04-06] MEDS ORDERED: HOME MED LIST COMPLETE! XX SCH ×2 (08:15→08:20)
[2024-04-06] MEDS ORDERED: MAALOX 30 ML SUSP *UDC PO PRN (11:30)
[2024-04-06] MEDS: oxyCODONE 5MG TAB PO PRN (12:06)
[2024-04-06] MEDS: FOLIC ACID 1MG TAB PO SCH (12:08)
[2024-04-06] MEDS: predniSONE 20 MG TAB PO SCH (12:08)
[2024-04-06] MEDS: MORPHINE SULFATE TAB EXT REL 15 MG PO SCH (12:08)
[2024-04-06] MEDS: DOCUSATE SODIUM 100MG CAPSULE PO SCH (12:08)
[2024-04-06] MEDS: PIPERACILLIN/TAZOBACTAM SOD 4.5 GM in DEXTROSE 5% (D5W) ADV/MINI-BAG 50 ML IV SCH (12:09)
[2024-04-06] MEDS: SENNA 8.6 MG TAB (SENOKOT) PO SCH (12:09)
[2024-04-06] MEDS: OMEPRAZOLE 20MG CAP PO SCH (12:09)
[2024-04-06] MEDS: TIOTROPIUM INHALER/CAPSULE (SPIRIVA) INH SCH (15:28)
[2024-04-06] MEDS ORDERED: LIDOCAINE 1% MDV 20ML VIAL ONE (16:33)
[2024-04-06] MEDS ORDERED: ISOVUE-300 61% 100ML VIAL ONE (16:34)
[2024-04-06] MEDS ORDERED: fentaNYL 100 MCG/2 ML INJECTION As Ordered ONE (16:43)
[2024-04-06] MEDS ORDERED: MIDAZOLAM INJ 2MG/2ML VIAL As Ordered ONE (16:43)
[2024-04-06] MEDS ORDERED: HEPARIN 1,000UNITS/ML 10ML VIAL (FOR RADIOLOGY & DIALYSIS ONLY) As Ordered ONE (16:46)
[2024-04-06] MEDS: NS (Normal Saline) 0.9% 1,000 ML IV SCH (18:05)
[2024-04-06] MEDS: FUROSEMIDE 40MG/4ML VIAL IV ONE (19:28)
[2024-04-07] VITALS (37 sets, daily range): BP systolic 99–156; BP diastolic 57–83; TEMP 97.8–100.5; O2SAT 90–97
[2024-04-07 03:40] LABS: BASO % 0.7 % (0.0-1.0); EOS % 0.4 % (0.0-3.0); HEMATOCRIT 28.6 % (42.0-52.0); HEMOGLOBIN 9.2 g/dl (13.5-17.5); LYMPH # 0.3 10^3/uL (1.5-5.0); LYMPH % 5.4 % (24.0-44.0); MEAN CORPUSCULAR HEMOGLOBIN 26.9 pg (27.0-33.0); MEAN CORPUSCULAR HGB CONC 32.2 g/dl (32.0-36.5); MEAN CORPUSCULAR VOLUME 83.6 fl (80.0-96.0); MONO # 0.3 10^3/uL (0.0-0.8); MONO % 4.5 % (2.0-8.0); NEUTROPHILS # 4.9 10^3/uL (1.5-8.5); NEUTROPHILS % 88.3 % (36.0-66.0); PLATELET COUNT, AUTOMATED 225 10^3/uL (150-450); RED BLOOD COUNT 3.42 10^6/uL (4.30-6.10); WHITE BLOOD COUNT 5.6 10^3/uL (4.0-10.0)
[2024-04-07 04:22] LABS: INR 1.26; PARTIAL THROMBOPLASTIN TIME 93.3 SECONDS (24.8-34.2); PROTHROMBIN TIME 16.1 SECONDS (12.5-14.5)
[2024-04-07 04:23] LABS: BILIRUBIN,TOTAL 0.6 MG/DL (0.3-1.2); CALCIUM LEVEL 8.6 MG/DL (8.5-10.1); CREATININE FOR GFR 1.33 MG/DL (0.70-1.30); GLOMERULAR FILTRATION RATE 59.4 (>56); MAGNESIUM LEVEL 1.7 MG/DL (1.8-2.4); POTASSIUM SERUM 3.9 MMOL/L (3.5-5.1); TOTAL PROTEIN 5.7 G/DL (5.7-8.2)
[2024-04-07] MEDS: MIRALAX *UNIT DOSE* 17GM PACKET PO SCH (09:22)
[2024-04-07] MEDS: DOXYCYCLINE HYCLATE 100 MG in DEXTROSE 5% (D5W) MINI-BAG PLU 100 ML IV SCH (09:22)
[2024-04-07] MEDS ORDERED: ENOXAPARIN 100MG/1ML SYRINGE (J1650 PER 10MG) SC SCH (13:00)
[2024-04-07] MEDS: ENOXAPARIN 100MG/1ML SYRINGE (J1650 PER 10MG) SC SCH (13:36)
[2024-04-07] MEDS: MORPHINE SULFATE TAB EXT REL 30 MG PO ONE (13:52)
[2024-04-07] MEDS: MORPHINE SULFATE TAB EXT REL 15 MG PO ONE (13:56)
[2024-04-07] MEDS: METOPROLOL TART 25 MG TABLET PO SCH (16:35)
[2024-04-07] MEDS: ACETAMINOPHEN 500 MG TAB PO PRN (18:08)
[2024-04-07] MEDS: MORPHINE SULFATE TAB EXT REL 30 MG PO SCH (20:19)
[2024-04-08] VITALS (24 sets, daily range): BP systolic 99–120; BP diastolic 58–76; TEMP 98.3–99.7; O2SAT 87–93
[2024-04-08 07:25] LABS: BASO # 0.1 10^3/uL (0.0-0.2); BASO % 0.8 % (0.0-1.0); EOS # 0.1 10^3/uL (0.0-0.5); EOS % 1.1 % (0.0-3.0); HEMATOCRIT 28.3 % (42.0-52.0); HEMOGLOBIN 8.9 g/dl (13.5-17.5); LYMPH # 0.4 10^3/uL (1.5-5.0); LYMPH % 5.8 % (24.0-44.0); MEAN CORPUSCULAR HEMOGLOBIN 26.7 pg (27.0-33.0); MEAN CORPUSCULAR HGB CONC 31.4 g/dl (32.0-36.5); MONO # 0.2 10^3/uL (0.0-0.8); MONO % 3.1 % (2.0-8.0); NEUTROPHILS # 5.7 10^3/uL (1.5-8.5); PLATELET COUNT, AUTOMATED 250 10^3/uL (150-450); RED BLOOD COUNT 3.33 10^6/uL (4.30-6.10); WHITE BLOOD COUNT 6.4 10^3/uL (4.0-10.0)
[2024-04-08 07:35] LABS: INR 1.23; PARTIAL THROMBOPLASTIN TIME 44.4 SECONDS (24.8-34.2); PROTHROMBIN TIME 15.8 SECONDS (12.5-14.5)
[2024-04-08 07:54] LABS: ALKALINE PHOSPHATASE 286 U/L (40-129); ALT/SGPT 130 U/L (7.0-40); AST/SGOT 98 U/L (<34); BILIRUBIN,TOTAL 0.5 MG/DL (0.3-1.2); BLOOD UREA NITROGEN 29 MG/DL (9-23); CARBON DIOXIDE LEVEL 29 MMOL/L (20-31); CHLORIDE LEVEL 99 MMOL/L (98-107); CREATININE FOR GFR 1.12 MG/DL (0.70-1.30); GLOMERULAR FILTRATION RATE > 60.0 (>56); GLUCOSE, FASTING 98 MG/DL (60-100); MAGNESIUM LEVEL 1.8 MG/DL (1.8-2.4); POTASSIUM SERUM 3.9 MMOL/L (3.5-5.1); SODIUM LEVEL 139 MMOL/L (136-145); TOTAL PROTEIN 5.5 G/DL (5.7-8.2)
[2024-04-08] MEDS: LIDOCAINE 5% (LIDODERM) PATCH TD SCH (12:18)
[2024-04-08] MEDS: AZITHROMYCIN 250MG TABLET PO SCH (12:18)
[2024-04-08] MEDS: oxyCODONE 5MG TAB PO PRN (12:20)
[2024-04-08] MEDS ORDERED: NALOXONE INJ 0.4MG/1ML VIAL IV PRN (12:45)
[2024-04-08] MEDS: MOM 30ML SUSPENSION UDC PO PRN (12:48)
[2024-04-08] MEDS: MORPHINE SULFATE TAB EXT REL 30 MG PO SCH (20:31)
[2024-04-09] VITALS (16 sets, daily range): BP systolic 95–118; BP diastolic 55–71; TEMP 98–100.8; O2SAT 89–99
[2024-04-09 06:12] LABS: BASO % 0.6 % (0.0-1.0); EOS # 0.1 10^3/uL (0.0-0.5); EOS % 1.4 % (0.0-3.0); HEMATOCRIT 31.5 % (42.0-52.0); HEMOGLOBIN 9.5 g/dl (13.5-17.5); LYMPH # 0.4 10^3/uL (1.5-5.0); LYMPH % 5.4 % (24.0-44.0); MEAN CORPUSCULAR HEMOGLOBIN 25.7 pg (27.0-33.0); MEAN CORPUSCULAR HGB CONC 30.2 g/dl (32.0-36.5); MEAN CORPUSCULAR VOLUME 85.4 fl (80.0-96.0); MONO # 0.2 10^3/uL (0.0-0.8); MONO % 3.4 % (2.0-8.0); NEUTROPHILS # 5.7 10^3/uL (1.5-8.5); NEUTROPHILS % 88.1 % (36.0-66.0); PLATELET COUNT, AUTOMATED 283 10^3/uL (150-450); RED BLOOD COUNT 3.69 10^6/uL (4.30-6.10); WHITE BLOOD COUNT 6.5 10^3/uL (4.0-10.0)
[2024-04-09 06:29] LABS: ALKALINE PHOSPHATASE 354 U/L (40-129); ALT/SGPT 165 U/L (7.0-40); AST/SGOT 118 U/L (<34); BILIRUBIN,TOTAL 0.6 MG/DL (0.3-1.2); BLOOD UREA NITROGEN 28 MG/DL (9-23); CALCIUM LEVEL 9.7 MG/DL (8.5-10.1); CARBON DIOXIDE LEVEL 30 MMOL/L (20-31); CHLORIDE LEVEL 101 MMOL/L (98-107); CREATININE FOR GFR 1.21 MG/DL (0.70-1.30); GLOMERULAR FILTRATION RATE > 60.0 (>56); GLUCOSE, FASTING 104 MG/DL (60-100); MAGNESIUM LEVEL 1.8 MG/DL (1.8-2.4); POTASSIUM SERUM 4.7 MMOL/L (3.5-5.1); SODIUM LEVEL 139 MMOL/L (136-145); TOTAL PROTEIN 5.9 G/DL (5.7-8.2)
[2024-04-10] VITALS (33 sets, daily range): BP systolic 95–143; BP diastolic 57–79; TEMP 97.9–98.7; O2SAT 89–96
[2024-04-10 05:48] LABS: BASO % 0.5 % (0.0-1.0); EOS # 0.1 10^3/uL (0.0-0.5); EOS % 1.6 % (0.0-3.0); HEMATOCRIT 28.8 % (42.0-52.0); LYMPH # 0.4 10^3/uL (1.5-5.0); LYMPH % 6.2 % (24.0-44.0); MEAN CORPUSCULAR HEMOGLOBIN 26.2 pg (27.0-33.0); MEAN CORPUSCULAR HGB CONC 31.3 g/dl (32.0-36.5); MONO # 0.2 10^3/uL (0.0-0.8); MONO % 2.9 % (2.0-8.0); NEUTROPHILS # 5.1 10^3/uL (1.5-8.5); NEUTROPHILS % 88.1 % (36.0-66.0); PLATELET COUNT, AUTOMATED 275 10^3/uL (150-450); RED BLOOD COUNT 3.43 10^6/uL (4.30-6.10); WHITE BLOOD COUNT 5.8 10^3/uL (4.0-10.0)
[2024-04-10 06:13] LABS: ALBUMIN 1.9 G/DL (3.2-5.2); ALKALINE PHOSPHATASE 326 U/L (40-129); ALT/SGPT 133 U/L (7.0-40); AST/SGOT 80 U/L (<34); BILIRUBIN,TOTAL 0.6 MG/DL (0.3-1.2); BLOOD UREA NITROGEN 31 MG/DL (9-23); CALCIUM LEVEL 9.7 MG/DL (8.5-10.1); CARBON DIOXIDE LEVEL 30 MMOL/L (20-31); CHLORIDE LEVEL 101 MMOL/L (98-107); CREATININE FOR GFR 1.12 MG/DL (0.70-1.30); GLOMERULAR FILTRATION RATE > 60.0 (>56); GLUCOSE, FASTING 117 MG/DL (60-100); MAGNESIUM LEVEL 1.7 MG/DL (1.8-2.4); POTASSIUM SERUM 4.2 MMOL/L (3.5-5.1); SODIUM LEVEL 140 MMOL/L (136-145); TOTAL PROTEIN 5.7 G/DL (5.7-8.2)
[2024-04-10] MEDS: PEMBROLIZUMAB OVER 30 MINUTES IV ONE (15:28)
[2024-04-10] MEDS: PERCOCET 5MG/325MG TAB PO PRN (16:29)
[2024-04-11] VITALS (40 sets, daily range): BP systolic 105–123; BP diastolic 60–72; TEMP 98.2–101.7; O2SAT 71–94
[2024-04-11 06:17] LABS: BASO % 0.5 % (0.0-1.0); EOS # 0.1 10^3/uL (0.0-0.5); EOS % 1.6 % (0.0-3.0); HEMATOCRIT 29.4 % (42.0-52.0); HEMOGLOBIN 9.3 g/dl (13.5-17.5); LYMPH # 0.2 10^3/uL (1.5-5.0); LYMPH % 3.5 % (24.0-44.0); MEAN CORPUSCULAR HEMOGLOBIN 26.7 pg (27.0-33.0); MEAN CORPUSCULAR HGB CONC 31.6 g/dl (32.0-36.5); MEAN CORPUSCULAR VOLUME 84.5 fl (80.0-96.0); MONO # 0.2 10^3/uL (0.0-0.8); MONO % 2.9 % (2.0-8.0); NEUTROPHILS % 90.2 % (36.0-66.0); PLATELET COUNT, AUTOMATED 308 10^3/uL (150-450); RED BLOOD COUNT 3.48 10^6/uL (4.30-6.10); WHITE BLOOD COUNT 5.5 10^3/uL (4.0-10.0)
[2024-04-11 06:38] LABS: ALBUMIN 1.8 G/DL (3.2-5.2); ALKALINE PHOSPHATASE 368 U/L (40-129); ALT/SGPT 124 U/L (7.0-40); AST/SGOT 87 U/L (<34); BILIRUBIN,TOTAL 0.5 MG/DL (0.3-1.2); BLOOD UREA NITROGEN 29 MG/DL (9-23); CALCIUM LEVEL 9.4 MG/DL (8.5-10.1); CARBON DIOXIDE LEVEL 29 MMOL/L (20-31); CHLORIDE LEVEL 98 MMOL/L (98-107); CREATININE FOR GFR 1.14 MG/DL (0.70-1.30); GLOMERULAR FILTRATION RATE > 60.0 (>56); GLUCOSE, FASTING 118 MG/DL (60-100); MAGNESIUM LEVEL 1.7 MG/DL (1.8-2.4); POTASSIUM SERUM 4.4 MMOL/L (3.5-5.1); SODIUM LEVEL 138 MMOL/L (136-145); TOTAL PROTEIN 5.7 G/DL (5.7-8.2)
[2024-04-12] VITALS (21 sets, daily range): BP systolic 117–130; BP diastolic 66–74; TEMP 98.2–99.5; O2SAT 88–95
[2024-04-12 06:16] LABS: BASO % 0.9 % (0.0-1.0); EOS # 0.1 10^3/uL (0.0-0.5); EOS % 1.7 % (0.0-3.0); HEMATOCRIT 31.2 % (42.0-52.0); HEMOGLOBIN 9.7 g/dl (13.5-17.5); LYMPH # 0.3 10^3/uL (1.5-5.0); LYMPH % 6.8 % (24.0-44.0); MEAN CORPUSCULAR HEMOGLOBIN 26.2 pg (27.0-33.0); MEAN CORPUSCULAR HGB CONC 31.1 g/dl (32.0-36.5); MEAN CORPUSCULAR VOLUME 84.3 fl (80.0-96.0); MONO # 0.1 10^3/uL (0.0-0.8); MONO % 2.6 % (2.0-8.0); NEUTROPHILS % 87.3 % (36.0-66.0); PLATELET COUNT, AUTOMATED 301 10^3/uL (150-450); WHITE BLOOD COUNT 4.6 10^3/uL (4.0-10.0)
[2024-04-12 06:53] LABS: ALBUMIN 1.9 G/DL (3.2-5.2); ALKALINE PHOSPHATASE 339 U/L (40-129); ALT/SGPT 102 U/L (7.0-40); AST/SGOT 60 U/L (<34); BILIRUBIN,TOTAL 0.6 MG/DL (0.3-1.2); BLOOD UREA NITROGEN 26 MG/DL (9-23); CALCIUM LEVEL 10.2 MG/DL (8.5-10.1); CARBON DIOXIDE LEVEL 29 MMOL/L (20-31); CHLORIDE LEVEL 97 MMOL/L (98-107); CREATININE FOR GFR 1.05 MG/DL (0.70-1.30); GLOMERULAR FILTRATION RATE > 60.0 (>56); GLUCOSE, FASTING 115 MG/DL (60-100); MAGNESIUM LEVEL 1.9 MG/DL (1.8-2.4); POTASSIUM SERUM 4.1 MMOL/L (3.5-5.1); SODIUM LEVEL 137 MMOL/L (136-145)
[2024-04-12] MEDS: SYMBICORT 80/4.5MCG INHALER 6GM INH SCH (12:21)
[2024-04-12] MEDS: HYDROCORTISONE 1% CREAM 30GM TOP SCH (13:35)
[2024-04-12] MEDS: SODIUM CHLORIDE NASAL 0.65% SPRAY BTL (OCEAN) SCH (15:50)
[2024-04-12 17:13] LABS: URINE STREP PNEUMONIAE ANTIGEN NOT DETECTED (NOT DETECT)
[2024-04-12] MEDS: MORPHINE SULFATE TAB EXT REL 30 MG PO SCH (19:38)
[2024-04-13] VITALS (28 sets, daily range): BP systolic 115–138; BP diastolic 69–73; TEMP 98.3–98.9; O2SAT 86–96
[2024-04-13] MEDS: oxyCODONE 5MG TAB PO PRN (01:52)
[2024-04-13 07:53] LABS: BASO % 0.5 % (0.0-1.0); EOS # 0.1 10^3/uL (0.0-0.5); EOS % 2.2 % (0.0-3.0); HEMATOCRIT 30.4 % (42.0-52.0); HEMOGLOBIN 9.6 g/dl (13.5-17.5); LYMPH # 0.3 10^3/uL (1.5-5.0); MEAN CORPUSCULAR HEMOGLOBIN 26.5 pg (27.0-33.0); MEAN CORPUSCULAR HGB CONC 31.6 g/dl (32.0-36.5); MONO # 0.2 10^3/uL (0.0-0.8); MONO % 4.4 % (2.0-8.0); NEUTROPHILS # 4.7 10^3/uL (1.5-8.5); PLATELET COUNT, AUTOMATED 305 10^3/uL (150-450); RED BLOOD COUNT 3.62 10^6/uL (4.30-6.10); WHITE BLOOD COUNT 5.5 10^3/uL (4.0-10.0)
[2024-04-13 08:14] LABS: ALBUMIN 1.9 G/DL (3.2-5.2); ALKALINE PHOSPHATASE 325 U/L (40-129); ALT/SGPT 85 U/L (7.0-40); AST/SGOT 50 U/L (<34); BILIRUBIN,TOTAL 0.4 MG/DL (0.3-1.2); BLOOD UREA NITROGEN 27 MG/DL (9-23); CALCIUM LEVEL 10.2 MG/DL (8.5-10.1); CARBON DIOXIDE LEVEL 30 MMOL/L (20-31); CHLORIDE LEVEL 98 MMOL/L (98-107); CREATININE FOR GFR 1.02 MG/DL (0.70-1.30); GLOMERULAR FILTRATION RATE > 60.0 (>56); GLUCOSE, FASTING 110 MG/DL (60-100); POTASSIUM SERUM 4.3 MMOL/L (3.5-5.1); SODIUM LEVEL 138 MMOL/L (136-145)
[2024-04-13] MEDS: oxyCODONE 5MG TAB PO ONE (08:19)
[2024-04-13] MEDS ORDERED: MORPHINE SULFATE TAB IMM. REL. 15 MG PO PRN (11:35)
[2024-04-13] MEDS: GLYCOPYRROLATE INJ 0.2 MG/ML 2 ML VIAL NEB SCH (19:36)
[2024-04-13] MEDS: FORMOTEROL FUMARATE 20 MCG/2 ML INHALATION SOLUTION (PERFOROMIST) INH SCH (19:36)
[2024-04-13] MEDS: BUDESONIDE 0.25 MG/2 ML INHALATION SUSPENSION INH SCH (19:57)
[2024-04-14] VITALS (40 sets, daily range): BP systolic 107–118; BP diastolic 69–77; TEMP 97.6–99.2; O2SAT 84–99
[2024-04-14] MEDS: MORPHINE SULFATE TAB IMM. REL. 15 MG PO PRN (02:10)
[2024-04-14 08:43] LABS: BASO # 0.1 10^3/uL (0.0-0.2); BASO % 0.8 % (0.0-1.0); EOS # 0.1 10^3/uL (0.0-0.5); EOS % 2.4 % (0.0-3.0); HEMATOCRIT 33.9 % (42.0-52.0); HEMOGLOBIN 10.3 g/dl (13.5-17.5); LYMPH # 0.4 10^3/uL (1.5-5.0); LYMPH % 7.1 % (24.0-44.0); MEAN CORPUSCULAR HEMOGLOBIN 25.9 pg (27.0-33.0); MEAN CORPUSCULAR HGB CONC 30.4 g/dl (32.0-36.5); MEAN CORPUSCULAR VOLUME 85.4 fl (80.0-96.0); MONO # 0.2 10^3/uL (0.0-0.8); MONO % 3.9 % (2.0-8.0); NEUTROPHILS % 84.8 % (36.0-66.0); PLATELET COUNT, AUTOMATED 315 10^3/uL (150-450); RED BLOOD COUNT 3.97 10^6/uL (4.30-6.10); WHITE BLOOD COUNT 5.9 10^3/uL (4.0-10.0)
[2024-04-14] MEDS: FUROSEMIDE 20MG/2ML VIAL IV ONE ×2 (08:58→10:33)
[2024-04-14 09:05] LABS: ALBUMIN 1.9 G/DL (3.2-5.2); ALKALINE PHOSPHATASE 318 U/L (40-129); ALT/SGPT 74 U/L (7.0-40); AST/SGOT 54 U/L (<34); BILIRUBIN,TOTAL 0.5 MG/DL (0.3-1.2); BLOOD UREA NITROGEN 29 MG/DL (9-23); CALCIUM LEVEL 10.1 MG/DL (8.5-10.1); CARBON DIOXIDE LEVEL 31 MMOL/L (20-31); CHLORIDE LEVEL 98 MMOL/L (98-107); CREATININE FOR GFR 1.09 MG/DL (0.70-1.30); GLOMERULAR FILTRATION RATE > 60.0 (>56); GLUCOSE, FASTING 118 MG/DL (60-100); POTASSIUM SERUM 4.6 MMOL/L (3.5-5.1); SODIUM LEVEL 139 MMOL/L (136-145); TOTAL PROTEIN 6.1 G/DL (5.7-8.2)
[2024-04-14] MEDS ORDERED: BISACODYL 10MG SUPP PR PRN (11:00)
[2024-04-14] MEDS: FUROSEMIDE 20MG/2ML VIAL IV SCH (16:49)
[2024-04-15] VITALS (28 sets, daily range): BP systolic 90–135; BP diastolic 56–79; TEMP 98–99.6; O2SAT 88–97
[2024-04-15 06:25] LABS: BASO # 0.1 10^3/uL (0.0-0.2); EOS # 0.1 10^3/uL (0.0-0.5); EOS % 1.5 % (0.0-3.0); HEMOGLOBIN 9.4 g/dl (13.5-17.5); LYMPH # 0.5 10^3/uL (1.5-5.0); LYMPH % 8.1 % (24.0-44.0); MEAN CORPUSCULAR HEMOGLOBIN 25.8 pg (27.0-33.0); MEAN CORPUSCULAR HGB CONC 30.3 g/dl (32.0-36.5); MEAN CORPUSCULAR VOLUME 85.2 fl (80.0-96.0); MONO # 0.2 10^3/uL (0.0-0.8); MONO % 3.2 % (2.0-8.0); NEUTROPHILS # 5.3 10^3/uL (1.5-8.5); NEUTROPHILS % 85.2 % (36.0-66.0); PLATELET COUNT, AUTOMATED 273 10^3/uL (150-450); RED BLOOD COUNT 3.64 10^6/uL (4.30-6.10); WHITE BLOOD COUNT 6.2 10^3/uL (4.0-10.0)
[2024-04-15 07:01] LABS: ALBUMIN 1.9 G/DL (3.2-5.2); ALKALINE PHOSPHATASE 272 U/L (40-129); ALT/SGPT 63 U/L (7.0-40); AST/SGOT 46 U/L (<34); BILIRUBIN,TOTAL 0.5 MG/DL (0.3-1.2); BLOOD UREA NITROGEN 35 MG/DL (9-23); CALCIUM LEVEL 11.2 MG/DL (8.5-10.1); CARBON DIOXIDE LEVEL 33 MMOL/L (20-31); CHLORIDE LEVEL 96 MMOL/L (98-107); CREATININE FOR GFR 1.23 MG/DL (0.70-1.30); GLOMERULAR FILTRATION RATE > 60.0 (>56); GLUCOSE, FASTING 120 MG/DL (60-100); POTASSIUM SERUM 4.4 MMOL/L (3.5-5.1); SODIUM LEVEL 138 MMOL/L (136-145)
[2024-04-15 07:41] LABS: MAGNESIUM LEVEL 2.1 MG/DL (1.8-2.4)
[2024-04-16] VITALS (26 sets, daily range): BP systolic 105–114; BP diastolic 65–74; TEMP 97.1–99.5; O2SAT 92–98
[2024-04-16 06:34] LABS: HEMATOCRIT 29.4 % (42.0-52.0); MEAN CORPUSCULAR HEMOGLOBIN 25.9 pg (27.0-33.0); MEAN CORPUSCULAR HGB CONC 30.6 g/dl (32.0-36.5); MEAN CORPUSCULAR VOLUME 84.5 fl (80.0-96.0); PLATELET COUNT, AUTOMATED 238 10^3/uL (150-450); RED BLOOD COUNT 3.48 10^6/uL (4.30-6.10); WHITE BLOOD COUNT 5.7 10^3/uL (4.0-10.0)
[2024-04-16 07:00] LABS: ALBUMIN 1.8 G/DL (3.2-5.2); BILIRUBIN,TOTAL 0.4 MG/DL (0.3-1.2); CALCIUM LEVEL 11.4 MG/DL (8.5-10.1); CREATININE FOR GFR 1.36 MG/DL (0.70-1.30); GLOMERULAR FILTRATION RATE 57.9 (>56); MAGNESIUM LEVEL 2.2 MG/DL (1.8-2.4); POTASSIUM SERUM 4.2 MMOL/L (3.5-5.1); TOTAL PROTEIN 5.9 G/DL (5.7-8.2)
[2024-04-16] MEDS: ENOXAPARIN 100MG/1ML SYRINGE (J1650 PER 10MG) SC SCH (10:34)
[2024-04-16 13:21] LABS: APPEARANCE, URINE CLEAR (CLEAR); BACTERIA, URINE AUTO NEGATIVE (NEGATIVE); BILIRUBIN, URINE AUTO NEGATIVE (NEGATIVE); BLOOD, URINE BLOOD NEGATIVE (NEGATIVE); COLOR, URINE YELLOW (YELLOW); GLUCOSE, URINE (UA) AUTO NEGATIVE (NEGATIVE); KETONE, URINE AUTO NEGATIVE (NEGATIVE); LEUKOCYTE ESTERASE, URINE AUTO NEGATIVE (NEGATIVE); NITRITE, URINE AUTO NEGATIVE (NEGATIVE); PROTEIN, URINE AUTO NEGATIVE (NEGATIVE); RBC, URINE AUTO 0 /HPF (0-3); SPECIFIC GRAVITY URINE AUTO 1.011 (1.002-1.035); SQUAMOUS EPITHELIAL CELL UR AU 0 /HPF (0-6); UROBILINOGEN, URINE AUTO 0.2 mg/dL (0.0-2.0); WBC, URINE AUTO 0 /HPF (0-3)
[2024-04-16] MEDS: ALBUTEROL SULFATE 2.5MG/0.5ML INH NEB SOLN INH PRN (20:14)
[2024-04-17] VITALS (24 sets, daily range): BP systolic 106–113; BP diastolic 67–73; TEMP 97–99.2; O2SAT 73–97
[2024-04-17 07:53] LABS: HEMATOCRIT 29.6 % (42.0-52.0); MEAN CORPUSCULAR HEMOGLOBIN 25.9 pg (27.0-33.0); MEAN CORPUSCULAR HGB CONC 30.4 g/dl (32.0-36.5); MEAN CORPUSCULAR VOLUME 85.1 fl (80.0-96.0); PLATELET COUNT, AUTOMATED 219 10^3/uL (150-450); RED BLOOD COUNT 3.48 10^6/uL (4.30-6.10); WHITE BLOOD COUNT 6.5 10^3/uL (4.0-10.0)
[2024-04-17 08:20] LABS: ALBUMIN 1.9 G/DL (3.2-5.2); BILIRUBIN,TOTAL 0.5 MG/DL (0.3-1.2); CREATININE FOR GFR 1.34 MG/DL (0.70-1.30); GLOMERULAR FILTRATION RATE 58.9 (>56); MAGNESIUM LEVEL 2.2 MG/DL (1.8-2.4); POTASSIUM SERUM 4.3 MMOL/L (3.5-5.1)
[2024-04-17] MEDS: methylPREDNISolone 125MG 2ML VIAL IV ONE (09:43)
[2024-04-17] MEDS: methylPREDNISolone 125MG 2ML VIAL IV SCH (18:22)
[2024-04-18] VITALS (22 sets, daily range): BP systolic 104–121; BP diastolic 66–76; TEMP 97.8–98.8; O2SAT 92–98
[2024-04-18 05:45] LABS: HEMATOCRIT 27.3 % (42.0-52.0); HEMOGLOBIN 8.5 g/dl (13.5-17.5); MEAN CORPUSCULAR HEMOGLOBIN 25.8 pg (27.0-33.0); MEAN CORPUSCULAR HGB CONC 31.1 g/dl (32.0-36.5); MEAN CORPUSCULAR VOLUME 82.7 fl (80.0-96.0); PLATELET COUNT, AUTOMATED 224 10^3/uL (150-450); WHITE BLOOD COUNT 6.9 10^3/uL (4.0-10.0)
[2024-04-18 06:32] LABS: ALBUMIN 1.9 G/DL (3.2-5.2); ALKALINE PHOSPHATASE 223 U/L (40-129); ALT/SGPT 37 U/L (7.0-40); AST/SGOT 32 U/L (<34); BILIRUBIN,TOTAL 0.3 MG/DL (0.3-1.2); BLOOD UREA NITROGEN 54 MG/DL (9-23); CALCIUM LEVEL 10.7 MG/DL (8.5-10.1); CARBON DIOXIDE LEVEL 34 MMOL/L (20-31); CHLORIDE LEVEL 96 MMOL/L (98-107); CREATININE FOR GFR 1.18 MG/DL (0.70-1.30); GLOMERULAR FILTRATION RATE > 60.0 (>56); GLUCOSE, FASTING 151 MG/DL (60-100); MAGNESIUM LEVEL 2.2 MG/DL (1.8-2.4); POTASSIUM SERUM 4.2 MMOL/L (3.5-5.1); SODIUM LEVEL 138 MMOL/L (136-145)
[2024-04-18] MEDS: MORPHINE SULFATE TAB IMM. REL. 15 MG PO PRN (06:35)
[2024-04-18 09:50] LABS: ABG HCO3 33.5 MMOL/L (22.0-26.0); ABG O2 SATURATION 97.3 % (95.0-99.0); ABG PARTIAL PRESSURE CO2 45.9 mmHg (35.0-45.0); ABG PARTIAL PRESSURE O2 105.4 mmHg (75.0-100.0); ABG STANDARD HCO3 32.8 MMOL/L. (22.0-26.0); ABG TOTAL CO2 34.9 MMOL/L (22.0-29.0); ABG pH (ARTERIAL) 7.481 UNITS (7.350-7.450)
[2024-04-19] VITALS (18 sets, daily range): BP systolic 121–134; BP diastolic 65–77; TEMP 97.4–98.7; O2SAT 91–99
[2024-04-19 06:57] LABS: HEMATOCRIT 27.7 % (42.0-52.0); HEMOGLOBIN 8.5 g/dl (13.5-17.5); MEAN CORPUSCULAR HEMOGLOBIN 25.6 pg (27.0-33.0); MEAN CORPUSCULAR HGB CONC 30.7 g/dl (32.0-36.5); MEAN CORPUSCULAR VOLUME 83.4 fl (80.0-96.0); PLATELET COUNT, AUTOMATED 297 10^3/uL (150-450); RED BLOOD COUNT 3.32 10^6/uL (4.30-6.10); WHITE BLOOD COUNT 7.6 10^3/uL (4.0-10.0)
[2024-04-19 07:40] LABS: ALBUMIN 1.9 G/DL (3.2-5.2); ALKALINE PHOSPHATASE 197 U/L (40-129); ALT/SGPT 45 U/L (7.0-40); AST/SGOT 38 U/L (<34); BILIRUBIN,TOTAL 0.2 MG/DL (0.3-1.2); BLOOD UREA NITROGEN 55 MG/DL (9-23); CALCIUM LEVEL 10.3 MG/DL (8.5-10.1); CARBON DIOXIDE LEVEL 32 MMOL/L (20-31); CHLORIDE LEVEL 99 MMOL/L (98-107); CREATININE FOR GFR 1.01 MG/DL (0.70-1.30); GLOMERULAR FILTRATION RATE > 60.0 (>56); GLUCOSE, FASTING 170 MG/DL (60-100); MAGNESIUM LEVEL 2.2 MG/DL (1.8-2.4); POTASSIUM SERUM 4.4 MMOL/L (3.5-5.1); SODIUM LEVEL 139 MMOL/L (136-145); TOTAL PROTEIN 6.2 G/DL (5.7-8.2)
[2024-04-19] MEDS: ACETAMINOPHEN 325 MG TAB PO SCH (13:27)
[2024-04-19] MEDS: LIDOCAINE 5% (LIDODERM) PATCH TD SCH (13:27)
[2024-04-20] VITALS (11 sets, daily range): BP systolic 118–156; BP diastolic 70–88; TEMP 97.4–98.2; O2SAT 92–98
[2024-04-20 04:59] LABS: HEMATOCRIT 28.3 % (42.0-52.0); HEMOGLOBIN 8.7 g/dl (13.5-17.5); MEAN CORPUSCULAR HEMOGLOBIN 25.8 pg (27.0-33.0); MEAN CORPUSCULAR HGB CONC 30.7 g/dl (32.0-36.5); PLATELET COUNT, AUTOMATED 321 10^3/uL (150-450); RED BLOOD COUNT 3.37 10^6/uL (4.30-6.10); WHITE BLOOD COUNT 7.8 10^3/uL (4.0-10.0)
[2024-04-20 05:16] LABS: ALKALINE PHOSPHATASE 185 U/L (40-129); ALT/SGPT 49 U/L (7.0-40); AST/SGOT 42 U/L (<34); BILIRUBIN,TOTAL 0.2 MG/DL (0.3-1.2); BLOOD UREA NITROGEN 50 MG/DL (9-23); CARBON DIOXIDE LEVEL 32 MMOL/L (20-31); CHLORIDE LEVEL 101 MMOL/L (98-107); CREATININE FOR GFR 0.93 MG/DL (0.70-1.30); GLOMERULAR FILTRATION RATE > 60.0 (>56); GLUCOSE, FASTING 128 MG/DL (60-100); MAGNESIUM LEVEL 2.2 MG/DL (1.8-2.4); POTASSIUM SERUM 5.2 MMOL/L (3.5-5.1); SODIUM LEVEL 140 MMOL/L (136-145); TOTAL PROTEIN 6.1 G/DL (5.7-8.2)
[2024-04-21] VITALS (17 sets, daily range): BP systolic 114–137; BP diastolic 67–84; TEMP 97.1–98.5; O2SAT 92–97
[2024-04-21 08:14] LABS: BLOOD UREA NITROGEN 46 MG/DL (9-23); CALCIUM LEVEL 9.9 MG/DL (8.5-10.1); CARBON DIOXIDE LEVEL 32 MMOL/L (20-31); CHLORIDE LEVEL 101 MMOL/L (98-107); CREATININE FOR GFR 0.91 MG/DL (0.70-1.30); GLOMERULAR FILTRATION RATE > 60.0 (>56); GLUCOSE, FASTING 124 MG/DL (60-100); MAGNESIUM LEVEL 2.2 MG/DL (1.8-2.4); POTASSIUM SERUM 5.3 MMOL/L (3.5-5.1); SODIUM LEVEL 140 MMOL/L (136-145)
[2024-04-21] MEDS: FUROSEMIDE 40MG/4ML VIAL IV ONE (09:45)
[2024-04-21 09:49] LABS: BASO % 0.2 % (0.0-1.0); HEMATOCRIT 30.6 % (42.0-52.0); HEMOGLOBIN 9.5 g/dl (13.5-17.5); LYMPH # 0.4 10^3/uL (1.5-5.0); LYMPH % 3.7 % (24.0-44.0); MEAN CORPUSCULAR HEMOGLOBIN 26.2 pg (27.0-33.0); MEAN CORPUSCULAR VOLUME 84.3 fl (80.0-96.0); MONO # 0.5 10^3/uL (0.0-0.8); MONO % 4.4 % (2.0-8.0); NEUTROPHILS # 9.3 10^3/uL (1.5-8.5); PLATELET COUNT, AUTOMATED 347 10^3/uL (150-450); RED BLOOD COUNT 3.63 10^6/uL (4.30-6.10); WHITE BLOOD COUNT 10.3 10^3/uL (4.0-10.0)
[2024-04-21] MEDS: DEXTROSE 50% 50ML SYRINGE IV STA (09:49)
[2024-04-21] MEDS: SOD POLYSTYRENE SULFONATE SUSP 15GM 60ML UD PO ONE (09:49)
[2024-04-21] MEDS: HumuLIN R (REGULAR) INSULIN (NovoLIN R) **100U/ML** PER UNIT IV STA (09:50)
[2024-04-21 14:32] LABS: BLOOD UREA NITROGEN 48 MG/DL (9-23); CALCIUM LEVEL 9.6 MG/DL (8.5-10.1); CARBON DIOXIDE LEVEL 32 MMOL/L (20-31); CHLORIDE LEVEL 98 MMOL/L (98-107); CREATININE FOR GFR 0.91 MG/DL (0.70-1.30); GLOMERULAR FILTRATION RATE > 60.0 (>56); GLUCOSE, FASTING 122 MG/DL (60-100); POTASSIUM SERUM 4.9 MMOL/L (3.5-5.1); SODIUM LEVEL 139 MMOL/L (136-145)
[2024-04-22] VITALS (14 sets, daily range): BP systolic 114–141; BP diastolic 79–86; TEMP 97.2–98; O2SAT 94–97
[2024-04-22 08:35] LABS: HEMATOCRIT 32.4 % (42.0-52.0)
[2024-04-22 09:01] LABS: BLOOD UREA NITROGEN 49 MG/DL (9-23); CALCIUM LEVEL 9.6 MG/DL (8.5-10.1); CARBON DIOXIDE LEVEL 31 MMOL/L (20-31); CHLORIDE LEVEL 100 MMOL/L (98-107); CREATININE FOR GFR 0.92 MG/DL (0.70-1.30); GLOMERULAR FILTRATION RATE > 60.0 (>56); GLUCOSE, FASTING 132 MG/DL (60-100); MAGNESIUM LEVEL 2.2 MG/DL (1.8-2.4); POTASSIUM SERUM 4.9 MMOL/L (3.5-5.1); SODIUM LEVEL 140 MMOL/L (136-145)
[2024-04-23] VITALS (19 sets, daily range): BP systolic 131–137; BP diastolic 77–91; TEMP 97.5–98.7; O2SAT 90–98
[2024-04-23 07:22] LABS: BLOOD UREA NITROGEN 55 MG/DL (9-23); CALCIUM LEVEL 9.8 MG/DL (8.5-10.1); CARBON DIOXIDE LEVEL 29 MMOL/L (20-31); CHLORIDE LEVEL 104 MMOL/L (98-107); GLOMERULAR FILTRATION RATE > 60.0 (>56); GLUCOSE, FASTING 136 MG/DL (60-100); MAGNESIUM LEVEL 2.1 MG/DL (1.8-2.4); POTASSIUM SERUM 5.1 MMOL/L (3.5-5.1); SODIUM LEVEL 141 MMOL/L (136-145)
[2024-04-23] MEDS: APIXABAN 5 MG TAB (ELIQUIS) PO SCH (10:09)
[2024-04-24] VITALS (15 sets, daily range): BP systolic 121–147; BP diastolic 75–96; TEMP 97.2–98.7; O2SAT 90–98
[2024-04-24 06:17] LABS: BLOOD UREA NITROGEN 57 MG/DL (9-23); CALCIUM LEVEL 10.1 MG/DL (8.5-10.1); CARBON DIOXIDE LEVEL 29 MMOL/L (20-31); CHLORIDE LEVEL 101 MMOL/L (98-107); CREATININE FOR GFR 0.85 MG/DL (0.70-1.30); GLOMERULAR FILTRATION RATE > 60.0 (>56); GLUCOSE, FASTING 130 MG/DL (60-100); POTASSIUM SERUM 5.1 MMOL/L (3.5-5.1); SODIUM LEVEL 139 MMOL/L (136-145)
[2024-04-24 08:41] LABS: BASO % 0.1 % (0.0-1.0); EOS % 0.1 % (0.0-3.0); HEMATOCRIT 33.4 % (42.0-52.0); HEMOGLOBIN 10.2 g/dl (13.5-17.5); LYMPH # 0.5 10^3/uL (1.5-5.0); LYMPH % 3.3 % (24.0-44.0); MEAN CORPUSCULAR HEMOGLOBIN 25.7 pg (27.0-33.0); MEAN CORPUSCULAR HGB CONC 30.5 g/dl (32.0-36.5); MEAN CORPUSCULAR VOLUME 84.1 fl (80.0-96.0); MONO # 0.6 10^3/uL (0.0-0.8); MONO % 3.8 % (2.0-8.0); NEUTROPHILS # 14.2 10^3/uL (1.5-8.5); NEUTROPHILS % 90.8 % (36.0-66.0); PLATELET COUNT, AUTOMATED 324 10^3/uL (150-450); RED BLOOD COUNT 3.97 10^6/uL (4.30-6.10); WHITE BLOOD COUNT 15.6 10^3/uL (4.0-10.0)
[2024-04-24 09:10] LABS: BLOOD UREA NITROGEN 56 MG/DL (9-23); CALCIUM LEVEL 10.4 MG/DL (8.5-10.1); CARBON DIOXIDE LEVEL 30 MMOL/L (20-31); CHLORIDE LEVEL 101 MMOL/L (98-107); CREATININE FOR GFR 0.87 MG/DL (0.70-1.30); GLOMERULAR FILTRATION RATE > 60.0 (>56); GLUCOSE, FASTING 117 MG/DL (60-100); POTASSIUM SERUM 5.1 MMOL/L (3.5-5.1); SODIUM LEVEL 141 MMOL/L (136-145)
[2024-04-24] MEDS: methylPREDNISolone 125MG 2ML VIAL IV SCH (21:04)
[2024-04-25] VITALS (18 sets, daily range): BP systolic 112–143; BP diastolic 74–87; TEMP 96.4–98.2; O2SAT 91–100
[2024-04-25 06:17] LABS: BASO % 0.1 % (0.0-1.0); EOS % 0.2 % (0.0-3.0); HEMOGLOBIN 10.1 g/dl (13.5-17.5); LYMPH # 0.4 10^3/uL (1.5-5.0); LYMPH % 2.5 % (24.0-44.0); MEAN CORPUSCULAR HEMOGLOBIN 26.4 pg (27.0-33.0); MEAN CORPUSCULAR HGB CONC 31.6 g/dl (32.0-36.5); MEAN CORPUSCULAR VOLUME 83.8 fl (80.0-96.0); MONO # 0.6 10^3/uL (0.0-0.8); MONO % 3.4 % (2.0-8.0); NEUTROPHILS % 92.4 % (36.0-66.0); PLATELET COUNT, AUTOMATED 279 10^3/uL (150-450); RED BLOOD COUNT 3.82 10^6/uL (4.30-6.10); WHITE BLOOD COUNT 16.2 10^3/uL (4.0-10.0)
[2024-04-25 06:29] LABS: BLOOD UREA NITROGEN 58 MG/DL (9-23); CALCIUM LEVEL 10.3 MG/DL (8.5-10.1); CARBON DIOXIDE LEVEL 28 MMOL/L (20-31); CHLORIDE LEVEL 100 MMOL/L (98-107); CREATININE FOR GFR 0.84 MG/DL (0.70-1.30); GLOMERULAR FILTRATION RATE > 60.0 (>56); GLUCOSE, FASTING 126 MG/DL (60-100); MAGNESIUM LEVEL 2.1 MG/DL (1.8-2.4); POTASSIUM SERUM 5.3 MMOL/L (3.5-5.1); SODIUM LEVEL 140 MMOL/L (136-145)
[2024-04-25] MEDS: SOD POLYSTYRENE SULFONATE SUSP 15GM 60ML UD PO ONE (08:16)
[2024-04-25 16:30] LABS: BLOOD UREA NITROGEN 57 MG/DL (9-23); CALCIUM LEVEL 9.9 MG/DL (8.5-10.1); CARBON DIOXIDE LEVEL 29 MMOL/L (20-31); CHLORIDE LEVEL 99 MMOL/L (98-107); CREATININE FOR GFR 0.85 MG/DL (0.70-1.30); GLOMERULAR FILTRATION RATE > 60.0 (>56); GLUCOSE, FASTING 146 MG/DL (60-100); POTASSIUM SERUM 4.5 MMOL/L (3.5-5.1); SODIUM LEVEL 138 MMOL/L (136-145)
[2024-04-26] VITALS (8 sets, daily range): BP systolic 101–149; BP diastolic 66–90; TEMP 97.3–98.4; O2SAT 94–99
[2024-04-26 07:25] LABS: BASO % 0.1 % (0.0-1.0); EOS % 0.1 % (0.0-3.0); HEMATOCRIT 33.3 % (42.0-52.0); HEMOGLOBIN 10.5 g/dl (13.5-17.5); LYMPH # 0.5 10^3/uL (1.5-5.0); LYMPH % 3.7 % (24.0-44.0); MEAN CORPUSCULAR HEMOGLOBIN 26.5 pg (27.0-33.0); MEAN CORPUSCULAR HGB CONC 31.5 g/dl (32.0-36.5); MEAN CORPUSCULAR VOLUME 84.1 fl (80.0-96.0); MONO # 0.7 10^3/uL (0.0-0.8); MONO % 4.9 % (2.0-8.0); PLATELET COUNT, AUTOMATED 233 10^3/uL (150-450); RED BLOOD COUNT 3.96 10^6/uL (4.30-6.10); WHITE BLOOD COUNT 14.4 10^3/uL (4.0-10.0)
[2024-04-26 08:02] LABS: BLOOD UREA NITROGEN 63 MG/DL (9-23); CALCIUM LEVEL 10.3 MG/DL (8.5-10.1); CARBON DIOXIDE LEVEL 32 MMOL/L (20-31); CHLORIDE LEVEL 100 MMOL/L (98-107); CREATININE FOR GFR 1.07 MG/DL (0.70-1.30); GLOMERULAR FILTRATION RATE > 60.0 (>56); GLUCOSE, FASTING 121 MG/DL (60-100); POTASSIUM SERUM 4.3 MMOL/L (3.5-5.1); SODIUM LEVEL 142 MMOL/L (136-145)
[2024-04-26] MEDS: METOPROLOL TART 50 MG TAB PO SCH (08:46)
[2024-04-26] MEDS: predniSONE 10MG TAB PO SCH (08:56)
[2024-04-26] MEDS ORDERED: methylPREDNISolone 125MG 2ML VIAL IV SCH (09:00)
[2024-04-26] MEDS ORDERED: PRED10TA2 PO (17:25)
[2024-04-26] MEDS ORDERED: OXYC10TA12 PO (17:25)
[2024-04-26] MEDS ORDERED: MORP-69 PO (17:25)
[2024-04-26] MEDS ORDERED: LOPR1TAB6 PO (17:25)
[2024-04-26] MEDS ORDERED: MORP30TASA PO (17:25)
[2024-04-26] MEDS ORDERED: LIDO5TD TD (17:25)
[2024-04-27] VITALS (9 sets, daily range): BP systolic 104–107; BP diastolic 60–75; TEMP 97.4–97.9; O2SAT 93–96
[2024-04-27] MEDS ORDERED: MORP15TA2 PO (07:00)
[2024-04-27] MEDS ORDERED: OXYC10TA12 PO (07:02)
[2024-04-27] MEDS ORDERED: MORP30TASA PO (07:02)
[2024-04-27 07:53] LABS: BASO % 0.1 % (0.0-1.0); EOS % 0.1 % (0.0-3.0); HEMATOCRIT 32.9 % (42.0-52.0); HEMOGLOBIN 10.2 g/dl (13.5-17.5); LYMPH # 0.6 10^3/uL (1.5-5.0); LYMPH % 3.2 % (24.0-44.0); MEAN CORPUSCULAR HEMOGLOBIN 25.6 pg (27.0-33.0); MEAN CORPUSCULAR VOLUME 82.7 fl (80.0-96.0); MONO # 0.6 10^3/uL (0.0-0.8); MONO % 3.6 % (2.0-8.0); NEUTROPHILS # 16.1 10^3/uL (1.5-8.5); NEUTROPHILS % 91.6 % (36.0-66.0); PLATELET COUNT, AUTOMATED 189 10^3/uL (150-450); RED BLOOD COUNT 3.98 10^6/uL (4.30-6.10); WHITE BLOOD COUNT 17.6 10^3/uL (4.0-10.0)
[2024-04-27 08:21] LABS: BLOOD UREA NITROGEN 67 MG/DL (9-23); CALCIUM LEVEL 11.5 MG/DL (8.5-10.1); CARBON DIOXIDE LEVEL 29 MMOL/L (20-31); CHLORIDE LEVEL 100 MMOL/L (98-107); CREATININE FOR GFR 0.98 MG/DL (0.70-1.30); GLOMERULAR FILTRATION RATE > 60.0 (>56); GLUCOSE, FASTING 139 MG/DL (60-100); POTASSIUM SERUM 4.2 MMOL/L (3.5-5.1); SODIUM LEVEL 139 MMOL/L (136-145)
[2024-04-27] MEDS ORDERED: LIDO5TD TD (10:27)
== END 2024-04-27 13:25 | disposition home health service (06) | DRG 710 ==
LOC: M ED 01:37 → M ED INP 08:08 → M PCU 18:32
PROVIDERS: ADMIT Internal Medicine; ATTEND Internal Medicine
PROC: 02CQ3ZZ Extirpation of Matter from Right Pulmonary Artery, Percutaneous Approach (ICD-10-PCS; principal; 2024-04-06 15:00)
PROC: 06H03DZ Insertion of Intraluminal Device into Inferior Vena Cava, Percutaneous Approach (ICD-10-PCS; 2024-04-06 15:00)
DX: A41.9 Sepsis, unspecified organism (principal); I26.99 Other pulmonary embolism without acute cor pulmonale; J96.01 Acute respiratory failure with hypoxia; N17.9 Acute kidney failure, unspecified; C78.7 Secondary malignant neoplasm of liver and intrahepatic bile duct; J15.9 Unspecified bacterial pneumonia; E83.42 Hypomagnesemia; C77.2 Secondary and unspecified malignant neoplasm of intra-abdominal lymph nodes; L89.312 Pressure ulcer of right buttock, stage 2; C79.31 Secondary malignant neoplasm of brain; C79.51 Secondary malignant neoplasm of bone; C79.70 Secondary malignant neoplasm of unspecified adrenal gland; Z99.81 Dependence on supplemental oxygen; E87.5 Hyperkalemia; I82.441 Acute embolism and thrombosis of right tibial vein; C34.91 Malignant neoplasm of unspecified part of right bronchus or lung; D63.0 Anemia in neoplastic disease; K21.9 Gastro-esophageal reflux disease without esophagitis; R74.01 Elevation of levels of liver transaminase levels; Z79.01 Long term (current) use of anticoagulants; Z79.891 Long term (current) use of opiate analgesic; Z79.52 Long term (current) use of systemic steroids; Z79.899 Other long term (current) drug therapy; Z88.5 Allergy status to narcotic agent; Z88.6 Allergy status to analgesic agent; Z88.1 Allergy status to other antibiotic agents; Z88.8 Allergy status to other drugs, medicaments and biological substances; Z86.718 Personal history of other venous thrombosis and embolism; Z91.040 Latex allergy status; Z87.891 Personal history of nicotine dependence; G89.3 Neoplasm related pain (acute) (chronic); J44.9 Chronic obstructive pulmonary disease, unspecified; J70.2 Acute drug-induced interstitial lung disorders; J98.11 Atelectasis; R21 Rash and other nonspecific skin eruption; T45.1X5A Adverse effect of antineoplastic and immunosuppressive drugs, initial encounter; L89.322 Pressure ulcer of left buttock, stage 2

== ENCOUNTER → 2024-04-06 | Outpatient (RCR) | payer BC ==
[~2024-04-06] MED LIST changes: +OMEP-173 PO; +POLY17PO18 PO
== END ==
LOC: M ONCR 03-08 09:10
PROVIDERS: ATTEND General Practice
DX: Z51.0 Encounter for antineoplastic radiation therapy (principal); C79.51 Secondary malignant neoplasm of bone

== ENCOUNTER 2024-04-25 13:43 | Outpatient (RCR) | payer BC ==
[~2024-04-25 13:43] MED LIST changes: +OMEP-173 PO; +POLY17PO18 PO
[2024-04-26] MEDS ORDERED: LOPR1TAB6 PO (17:25)
[2024-04-26] MEDS ORDERED: MORP30TASA PO (17:25)
[2024-04-26] MEDS ORDERED: MORP-69 PO (17:25)
[2024-04-26] MEDS ORDERED: OXYC10TA12 PO (17:25)
[2024-04-26] MEDS ORDERED: PRED10TA2 PO (17:25)
[2024-04-26] MEDS ORDERED: LIDO5TD TD (17:25)
[2024-04-27] MEDS ORDERED: MORP15TA2 PO (07:00)
[2024-04-27] MEDS ORDERED: OXYC10TA12 PO (07:02)
[2024-04-27] MEDS ORDERED: MORP30TASA PO (07:02)
[2024-04-27] MEDS ORDERED: LIDO5TD TD (10:27)
== END 2024-05-04 ==
LOC: M ONCR 13:43
PROVIDERS: ATTEND General Practice
DX: Z51.0 Encounter for antineoplastic radiation therapy (principal); C79.51 Secondary malignant neoplasm of bone

== ENCOUNTER → 2024-05-15 | Outpatient (REF) | payer BC ==
[~2024-05-15] MED LIST changes: +LIDO5TD TD; +LOPR1TAB6 PO; +MORP15TA2 PO; +MORP30TASA PO; +PRED10TA2 PO
[2024-05-15 16:35] LABS: IRON (FE) 21 UG/DL (65-175); PERCENT SATURATION 10.1 % (19.7-50.0); TOTAL IRON BINDING CAPACITY 208 UG/DL (250-425)
[2024-05-15 16:37] LABS: FOLATE > 24.0 NG/ML (>5.4)
[2024-05-15 17:14] LABS: FERRITIN 5317.5 NG/ML (10.5-307.3); VITAMIN B12 LEVEL > 2000 PG/ML (211-911)
== END ==
LOC: M SHH 15:46
PROVIDERS: ATTEND Specialist
DX: C34.90 Malignant neoplasm of unspecified part of unspecified bronchus or lung (principal)

== ENCOUNTER 2024-05-23 18:15 | Inpatient (IN) | payer BC ==
[~2024-05-23] VITALS: Ht 182.9 cm; Wt 98.7 kg
[~2024-05-23 18:15] MED LIST changes: -BUDE0.5S6 NEB; -LIDO1PAD TOP; -METO50TA7 PO
[2024-05-23 19:04] LABS: HEMATOCRIT 21.6 % (42.0-52.0); MEAN CORPUSCULAR HEMOGLOBIN 25.4 pg (27.0-33.0); MEAN CORPUSCULAR HGB CONC 30.6 g/dl (32.0-36.5); MEAN CORPUSCULAR VOLUME 83.1 fl (80.0-96.0); PLATELET COUNT, AUTOMATED 237 10^3/uL (150-450); WHITE BLOOD COUNT 8.9 10^3/uL (4.0-10.0)
[2024-05-23 19:05] LABS: HEMOGLOBIN 6.6 g/dl (13.5-17.5)
[2024-05-23 19:36] LABS: BLOOD UREA NITROGEN 111 MG/DL (9-23); CALCIUM LEVEL 5.6 MG/DL (8.5-10.1); CARBON DIOXIDE LEVEL 22 MMOL/L (20-31); CHLORIDE LEVEL 96 MMOL/L (98-107); CREATININE FOR GFR 2.68 MG/DL (0.70-1.30); GLOMERULAR FILTRATION RATE 26.4 (>56); GLUCOSE, FASTING 109 MG/DL (60-100); POTASSIUM SERUM 4.4 MMOL/L (3.5-5.1); SODIUM LEVEL 131 MMOL/L (136-145)
[2024-05-23 20:09] LABS: LIPASE 303 U/L (12-53)
[2024-05-23 20:15] LABS: ALKALINE PHOSPHATASE 184 U/L (40-129); ALT/SGPT 19 U/L (7.0-40); AST/SGOT 42 U/L (<34); BILIRUBIN,DIRECT < 0.1 MG/DL (<0.4); BILIRUBIN,TOTAL 0.3 MG/DL (0.3-1.2); TOTAL PROTEIN 6.2 G/DL (5.7-8.2)
[2024-05-23] MEDS: CALCIUM GLUCONATE 1,000 MG in DEXTROSE 5% (D5W) MINI-BAG PLU 100 ML IV ONE (20:36)
[2024-05-23] MEDS: PIPERACILLIN/TAZOBACTAM SOD 4.5 GM in DEXTROSE 5% (D5W) ADV/MINI-BAG 50 ML IV ONE (22:40)
[2024-05-23] MEDS: MORPHINE SULFATE TAB EXT REL 30 MG PO ONE (22:41)
[2024-05-23] MEDS ORDERED: MORP15TA2 PO (23:04)
[2024-05-23] MEDS ORDERED: METO50TA7 PO (23:04)
[2024-05-23] MEDS ORDERED: LIDO1PAD TOP (23:04)
[2024-05-23] MEDS ORDERED: MORP30TASA PO (23:04)
[2024-05-23] MEDS ORDERED: BUDE0.5S6 NEB (23:04)
[2024-05-23] MEDS ORDERED: HOME MED LIST COMPLETE! XX SCH (23:10)
[2024-05-23 23:34] LABS: MAGNESIUM LEVEL 2.2 MG/DL (1.8-2.4)
[2024-05-23 23:48] VITALS: BP 131/72; TEMP 99.1; O2SAT 95
[2024-05-24] VITALS (28 sets, daily range): BP systolic 103–126; BP diastolic 57–76; TEMP 97.5–100.4; O2SAT 92–96
[2024-05-24] MEDS ORDERED: ALBUTEROL SULFATE 2.5MG/0.5ML INH NEB SOLN INH PRN (00:30)
[2024-05-24] MEDS ORDERED: ACETAMINOPHEN 325 MG TAB PO PRN (00:35)
[2024-05-24] MEDS ORDERED: LEVALBUTEROL 1.25MG 0.5ML CONCENTRATE NEB INH PRN (00:35)
[2024-05-24 00:43] LABS: KETONE, URINE AUTO RFX NEGATIVE (NEGATIVE); LEUKOCYTE ESTERASE UR AUTO RFX NEGATIVE (NEGATIVE); NITRITE, URINE AUTO RFX NEGATIVE (NEGATIVE); RBC, URINE AUTO RFX 0 /HPF (0-3); SQUAM EPITHELIAL CELL UR AURFX 1 /HPF (0-6); WBC, URINE AUTO RFX 0 /HPF (0-3)
[2024-05-24] MEDS: IPRATROPIUM 0.5MG/ALBUTEROL 2.5MG INH SOL UD 3ML (DUONEB) INH SCH (00:59)
[2024-05-24] MEDS: DOXYCYCLINE HYCLATE 100MG TABLET PO SCH (01:00)
[2024-05-24] MEDS: CALCIUM GLUCONATE 1,000 MG in DEXTROSE 5% (D5W) MINI-BAG PLU 100 ML IV ONE ×2 (01:28→05:36)
[2024-05-24 01:54] LABS: PROCALCITONIN 0.95 ng/ml
[2024-05-24] MEDS: PERCOCET 5MG/325MG TAB PO PRN (03:39)
[2024-05-24 04:37] LABS: IONIZED CALCIUM 3.4 MG/DL (4.5-5.3)
[2024-05-24 05:53] LABS: CALCIUM LEVEL 5.6 MG/DL (8.5-10.1); GLOMERULAR FILTRATION RATE 23.2 (>56); POTASSIUM SERUM 4.6 MMOL/L (3.5-5.1)
[2024-05-24 06:11] LABS: MEAN CORPUSCULAR HEMOGLOBIN 25.8 pg (27.0-33.0); MEAN CORPUSCULAR HGB CONC 31.2 g/dl (32.0-36.5); MEAN CORPUSCULAR VOLUME 82.7 fl (80.0-96.0); PLATELET COUNT, AUTOMATED 210 10^3/uL (150-450); RED BLOOD COUNT 2.48 10^6/uL (4.30-6.10); WHITE BLOOD COUNT 8.9 10^3/uL (4.0-10.0)
[2024-05-24 06:19] LABS: HEMATOCRIT 20.5 % (42.0-52.0)
[2024-05-24 06:23] LABS: HEMOGLOBIN 6.4 g/dl (13.5-17.5)
[2024-05-24] MEDS: MIRALAX *UNIT DOSE* 17GM PACKET PO SCH (08:22)
[2024-05-24] MEDS: OMEPRAZOLE 20MG CAP PO SCH (08:22)
[2024-05-24] MEDS: DOCUSATE SODIUM 100MG CAPSULE PO SCH (08:22)
[2024-05-24] MEDS: SENNA 8.6 MG TAB (SENOKOT) PO SCH (08:22)
[2024-05-24] MEDS: FOLIC ACID 1MG TAB PO SCH (08:22)
[2024-05-24] MEDS: PIPERACILLIN/TAZOBACTAM SOD 4.5 GM in DEXTROSE 5% (D5W) ADV/MINI-BAG 50 ML IV SCH (08:22)
[2024-05-24] MEDS: MORPHINE SULFATE TAB EXT REL 30 MG PO SCH (08:28)
[2024-05-24 08:31] LABS: IONIZED CALCIUM 3.4 MG/DL (4.5-5.3)
[2024-05-24 08:49] LABS: CALCIUM LEVEL 6.1 MG/DL (8.5-10.1); CREATININE FOR GFR 3.06 MG/DL (0.70-1.30); GLOMERULAR FILTRATION RATE 22.6 (>56); POTASSIUM SERUM 4.5 MMOL/L (3.5-5.1)
[2024-05-24] MEDS: LIDOCAINE 5% (LIDODERM) PATCH TOP SCH (08:53)
[2024-05-24] MEDS: TIOTROPIUM INHALER/CAPSULE (SPIRIVA) INH SCH (09:55)
[2024-05-24] MEDS: BUDESONIDE 0.5 MG/2 ML INHALATION SUSPENSION NEB SCH (09:55)
[2024-05-24] MEDS: CALCIUM GLUCONATE 1,000 MG in DEXTROSE 5% (D5W) MINI-BAG PLU 100 ML IV SCH ×2 (09:59→16:08)
[2024-05-24] MEDS: LR 1,000 ML IV SCH ×2 (09:59→16:45)
[2024-05-24] MEDS: SUCRALFATE 1 GM TAB PO SCH (14:23)
[2024-05-24] MEDS: LIDOCAINE 5% (LIDODERM) PATCH TD SCH (14:24)
[2024-05-24 14:59] LABS: HEMATOCRIT 22.3 % (42.0-52.0); HEMOGLOBIN 7.1 g/dl (13.5-17.5); MEAN CORPUSCULAR HEMOGLOBIN 26.3 pg (27.0-33.0); MEAN CORPUSCULAR HGB CONC 31.8 g/dl (32.0-36.5); MEAN CORPUSCULAR VOLUME 82.6 fl (80.0-96.0); PLATELET COUNT, AUTOMATED 206 10^3/uL (150-450); WHITE BLOOD COUNT 8.2 10^3/uL (4.0-10.0)
[2024-05-24 15:02] LABS: IONIZED CALCIUM 3.4 MG/DL (4.5-5.3)
[2024-05-24 15:29] LABS: CALCIUM LEVEL 6.2 MG/DL (8.5-10.1); CREATININE FOR GFR 3.08 MG/DL (0.70-1.30); GLOMERULAR FILTRATION RATE 22.5 (>56); POTASSIUM SERUM 4.5 MMOL/L (3.5-5.1)
[2024-05-24 15:30] LABS: IRON (FE) 23 UG/DL (65-175)
[2024-05-24 15:51] LABS: FOLATE 20.27 NG/ML (>5.4)
[2024-05-24 16:16] LABS: PERCENT SATURATION 11.6 % (19.7-50.0); TOTAL IRON BINDING CAPACITY 199 UG/DL (250-425)
[2024-05-24 16:28] LABS: VITAMIN B12 LEVEL > 2000 PG/ML (211-911)
[2024-05-24] MEDS: MORPHINE SULFATE TAB IMM. REL. 15 MG PO PRN (16:38)
[2024-05-24] MEDS ORDERED: PILL CUTTER 1 EACH XX PRN (18:25)
[2024-05-24 21:20] LABS: IONIZED CALCIUM 3.8 MG/DL (4.5-5.3)
[2024-05-24 21:26] LABS: HEMATOCRIT 22.9 % (42.0-52.0); HEMOGLOBIN 7.5 g/dl (13.5-17.5); MEAN CORPUSCULAR HGB CONC 32.8 g/dl (32.0-36.5); MEAN CORPUSCULAR VOLUME 82.4 fl (80.0-96.0); PLATELET COUNT, AUTOMATED 198 10^3/uL (150-450); RED BLOOD COUNT 2.78 10^6/uL (4.30-6.10); WHITE BLOOD COUNT 8.5 10^3/uL (4.0-10.0)
[2024-05-24] MEDS: MORPHINE SULFATE TAB EXT REL 15 MG PO SCH (21:34)
[2024-05-24] MEDS: PANTOPRAZOLE 40MG VIAL IV SCH (21:47)
[2024-05-24 21:50] LABS: CALCIUM LEVEL 6.6 MG/DL (8.5-10.1); CREATININE FOR GFR 3.11 MG/DL (0.70-1.30); GLOMERULAR FILTRATION RATE 22.2 (>56); POTASSIUM SERUM 4.6 MMOL/L (3.5-5.1)
[2024-05-25] VITALS (36 sets, daily range): BP systolic 107–127; BP diastolic 56–86; PULSE 129; TEMP 97.7–99.8; O2SAT 86–99
[2024-05-25] MEDS: MORPHINE SULFATE TAB IMM. REL. 15 MG PO PRN (03:03)
[2024-05-25 06:31] LABS: HEMATOCRIT 22.9 % (42.0-52.0); HEMOGLOBIN 7.3 g/dl (13.5-17.5); MEAN CORPUSCULAR HEMOGLOBIN 26.5 pg (27.0-33.0); MEAN CORPUSCULAR HGB CONC 31.9 g/dl (32.0-36.5); MEAN CORPUSCULAR VOLUME 83.3 fl (80.0-96.0); PLATELET COUNT, AUTOMATED 195 10^3/uL (150-450); RED BLOOD COUNT 2.75 10^6/uL (4.30-6.10); WHITE BLOOD COUNT 7.9 10^3/uL (4.0-10.0)
[2024-05-25 07:03] LABS: ALBUMIN 1.7 G/DL (3.2-5.2); BILIRUBIN,TOTAL 0.5 MG/DL (0.3-1.2); CALCIUM LEVEL 6.6 MG/DL (8.5-10.1); CREATININE FOR GFR 3.21 MG/DL (0.70-1.30); GLOMERULAR FILTRATION RATE 21.4 (>56); POTASSIUM SERUM 4.8 MMOL/L (3.5-5.1); TOTAL PROTEIN 5.5 G/DL (5.7-8.2)
[2024-05-25 08:32] LABS: PHOSPHORUS LEVEL 4.7 MG/DL (2.5-4.9)
[2024-05-25 09:00] LABS: VENOUS BASE EXCESS -7.6 (-2.0-2.0); VENOUS HCO3 16.7 MMOL/L (23.0-27.0); VENOUS O2 SATURATION 99.7 % (60.0-80.0); VENOUS PARTIAL PRESSURE CO2 29.4 mmHg (38.0-50.0); VENOUS PARTIAL PRESSURE O2 238.9 mmHg (30.0-50.0); VENOUS PH 7.373 UNITS (7.330-7.430); VENOUS STANDARD HCO3 18.2 MMOL/L; VENOUS TOTAL CO2 17.6 MMOL/L (24.0-28.0)
[2024-05-25] MEDS: CALCIUM GLUCONATE 1,000 MG in DEXTROSE 5% (D5W) MINI-BAG PLU 100 ML IV SCH (09:03)
[2024-05-25] MEDS: LORazepam 2 MG/ML 1ML VIAL IV STA (10:40)
[2024-05-25] MEDS ORDERED: flumazeniL 0.5MG/5ML VIAL As Ordered ONE (10:56)
[2024-05-25] MEDS: flumazeniL 0.5MG/5ML VIAL IV STA ×3 (11:00→11:45)
[2024-05-25 11:08] LABS: ABG BASE EXCESS -7.4 (-2.0-2.0); ABG HCO3 18.6 MMOL/L (22.0-26.0); ABG O2 SATURATION 89.7 % (95.0-99.0); ABG PARTIAL PRESSURE CO2 39.7 mmHg (35.0-45.0); ABG PARTIAL PRESSURE O2 63.5 mmHg (75.0-100.0); ABG STANDARD HCO3 18.2 MMOL/L. (22.0-26.0); ABG TOTAL CO2 19.8 MMOL/L (22.0-29.0); ABG pH (ARTERIAL) 7.288 UNITS (7.350-7.450)
[2024-05-25] MEDS: NALOXONE INJ 0.4MG/1ML VIAL IV PRN (11:09)
[2024-05-25] MEDS: IPRATROPIUM 0.02% SOLN 0.5MG 2.5ML NEB INH SCH (11:18)
[2024-05-25] MEDS: LEVALBUTEROL 1.25MG 0.5ML CONCENTRATE NEB INH SCH (11:18)
[2024-05-25] MEDS: METAMUCIL (PSYLLIUM) PACKET PO SCH (14:34)
[2024-05-25] MEDS: MIRALAX *UNIT DOSE* 17GM PACKET PO SCH (14:34)
[2024-05-25 17:33] LABS: TOTAL PROTEIN,RANDOM URINE 59.3 MG/DL (0.0-14.0)
[2024-05-25 17:38] LABS: CREATININE,RANDOM URINE 38.7 MG/DL
[2024-05-25 18:45] LABS: HEMATOCRIT 28.9 % (42.0-52.0); MEAN CORPUSCULAR HEMOGLOBIN 27.1 pg (27.0-33.0); MEAN CORPUSCULAR HGB CONC 32.5 g/dl (32.0-36.5); MEAN CORPUSCULAR VOLUME 83.3 fl (80.0-96.0); PLATELET COUNT, AUTOMATED 198 10^3/uL (150-450); RED BLOOD COUNT 3.47 10^6/uL (4.30-6.10); WHITE BLOOD COUNT 9.1 10^3/uL (4.0-10.0)
[2024-05-25 18:46] LABS: HEMOGLOBIN 9.4 g/dl (13.5-17.5)
[2024-05-25 19:07] LABS: ALBUMIN 1.8 G/DL (3.2-5.2); CALCIUM LEVEL 6.7 MG/DL (8.5-10.1); CREATININE FOR GFR 3.27 MG/DL (0.70-1.30); PHOSPHORUS LEVEL 4.7 MG/DL (2.5-4.9); POTASSIUM SERUM 4.8 MMOL/L (3.5-5.1)
[2024-05-25 22:15] LABS: HEMATOCRIT 28.7 % (42.0-52.0); HEMOGLOBIN 9.2 g/dl (13.5-17.5); MEAN CORPUSCULAR HEMOGLOBIN 26.9 pg (27.0-33.0); MEAN CORPUSCULAR HGB CONC 32.1 g/dl (32.0-36.5); MEAN CORPUSCULAR VOLUME 83.9 fl (80.0-96.0); PLATELET COUNT, AUTOMATED 185 10^3/uL (150-450); RED BLOOD COUNT 3.42 10^6/uL (4.30-6.10)
[2024-05-26] VITALS (9 sets, daily range): BP systolic 111; BP diastolic 53; TEMP 98.7; O2SAT 89–93
[2024-05-26] MEDS ORDERED: HYDROMORPHONE HCL 0.5 MG/ 0.5 ML SYRINGE IV PRN ×3 (04:45→08:30)
[2024-05-26] MEDS: HYDROMORPHONE HCL 0.5 MG/ 0.5 ML SYRINGE IV PRN ×3 (05:22→12:41)
[2024-05-26 05:30] LABS: HEMATOCRIT 28.1 % (42.0-52.0); MEAN CORPUSCULAR HEMOGLOBIN 27.2 pg (27.0-33.0); MEAN CORPUSCULAR VOLUME 84.9 fl (80.0-96.0); PLATELET COUNT, AUTOMATED 189 10^3/uL (150-450); RED BLOOD COUNT 3.31 10^6/uL (4.30-6.10); WHITE BLOOD COUNT 8.5 10^3/uL (4.0-10.0)
[2024-05-26 05:57] LABS: ALBUMIN 1.8 G/DL (3.2-5.2); CALCIUM LEVEL 7.2 MG/DL (8.5-10.1); CREATININE FOR GFR 3.59 MG/DL (0.70-1.30); GLOMERULAR FILTRATION RATE 18.8 (>56); PHOSPHORUS LEVEL 5.3 MG/DL (2.5-4.9); POTASSIUM SERUM 4.9 MMOL/L (3.5-5.1)
[2024-05-26] MEDS ORDERED: ATROPINE SULFATE 1% OPHTH SOLN 2ML BTL SL PRN (08:25)
[2024-05-26] MEDS ORDERED: MORPHINE 10MG/0.5ML ORAL CONCENTRATE SOLUTION U/D SL PRN (08:25)
[2024-05-26] MEDS ORDERED: ONDANSETRON 4MG ORAL DISINTEGRATING TAB PO PRN (08:25)
[2024-05-26] MEDS ORDERED: LORazepam 1 MG TAB PO PRN (08:25)
[2024-05-26] MEDS ORDERED: methylPREDNISolone 125MG 2ML VIAL IV SCH (09:00)
[2024-05-26] MEDS: LORazepam 2 MG/ML 1ML VIAL IV PRN (10:16)
[2024-05-26] MEDS: HYDROMORPHONE HCL 0.5 MG/ 0.5 ML SYRINGE IV ONE (16:49)
[2024-05-26] MEDS: fentaNYL 25 MCG/HR PATCH TOP SCH (16:53)
[2024-05-26] MEDS: SCOPOLAMINE 1MG TRANSDERMAL PATCH TOP PRN (20:05)
[2024-05-29] MEDS ORDERED: FENTANYL REMOVAL DOCUMENTATION MISC XX SCH (17:00)
== END 2024-05-26 21:28 | disposition expired | DRG 253 ==
LOC: M ED 18:15 → EDBD 18:15 → M ED INP 23:26 → M PCU 05-24 09:15
PROVIDERS: ADMIT Student in an Organized Health Care Education/Training Program; ATTEND Student in an Organized Health Care Education/Training Program
DX: K92.2 Gastrointestinal hemorrhage, unspecified (principal); J96.21 Acute and chronic respiratory failure with hypoxia; R65.21 Severe sepsis with septic shock; G93.41 Metabolic encephalopathy; A41.9 Sepsis, unspecified organism; J18.9 Pneumonia, unspecified organism; N17.9 Acute kidney failure, unspecified; C78.7 Secondary malignant neoplasm of liver and intrahepatic bile duct; C78.89 Secondary malignant neoplasm of other digestive organs; L89.152 Pressure ulcer of sacral region, stage 2; C77.2 Secondary and unspecified malignant neoplasm of intra-abdominal lymph nodes; C79.31 Secondary malignant neoplasm of brain; C79.51 Secondary malignant neoplasm of bone; C79.70 Secondary malignant neoplasm of unspecified adrenal gland; E87.20 Acidosis, unspecified; I27.20 Pulmonary hypertension, unspecified; Z99.81 Dependence on supplemental oxygen; E83.51 Hypocalcemia; E87.1 Hypo-osmolality and hyponatremia; J44.0 Chronic obstructive pulmonary disease with (acute) lower respiratory infection; J44.1 Chronic obstructive pulmonary disease with (acute) exacerbation; M84.58XA Pathological fracture in neoplastic disease, other specified site, initial encounter for fracture; C34.31 Malignant neoplasm of lower lobe, right bronchus or lung; Z51.5 Encounter for palliative care; Z66 Do not resuscitate; G89.3 Neoplasm related pain (acute) (chronic); J70.1 Chronic and other pulmonary manifestations due to radiation; J98.11 Atelectasis; K21.9 Gastro-esophageal reflux disease without esophagitis; M25.512 Pain in left shoulder; D62 Acute posthemorrhagic anemia; N05.9 Unspecified nephritic syndrome with unspecified morphologic changes; R00.0 Tachycardia, unspecified; I27.24 Chronic thromboembolic pulmonary hypertension; T45.1X5A Adverse effect of antineoplastic and immunosuppressive drugs, initial encounter; Z86.711 Personal history of pulmonary embolism; Z86.718 Personal history of other venous thrombosis and embolism; Z87.891 Personal history of nicotine dependence; Z79.899 Other long term (current) drug therapy; Z88.5 Allergy status to narcotic agent; Z88.6 Allergy status to analgesic agent; Z88.8 Allergy status to other drugs, medicaments and biological substances; Z91.040 Latex allergy status; Z88.1 Allergy status to other antibiotic agents

== ENCOUNTER → 2024-05-23 | Outpatient (REF) | payer BC ==
[~2024-05-23] MED LIST changes: +BUDE0.5S6 NEB; +LIDO1PAD TOP; +METO50TA7 PO
[2024-05-23 16:41] LABS: MEAN CORPUSCULAR HGB CONC 30.1 g/dl (32.0-36.5); MEAN CORPUSCULAR VOLUME 83.1 fl (80.0-96.0); PLATELET COUNT, AUTOMATED 226 10^3/uL (150-450); RED BLOOD COUNT 2.36 10^6/uL (4.30-6.10); WHITE BLOOD COUNT 9.3 10^3/uL (4.0-10.0)
[2024-05-23 16:42] LABS: HEMATOCRIT 19.6 % (42.0-52.0); HEMOGLOBIN 5.9 g/dl (13.5-17.5)
[2024-05-23 17:12] LABS: IRON (FE) 26 UG/DL (65-175); PERCENT SATURATION 12.4 % (19.7-50.0); TOTAL IRON BINDING CAPACITY 209 UG/DL (250-425)
[2024-05-23 17:59] LABS: ALBUMIN 1.8 G/DL (3.2-5.2); ALKALINE PHOSPHATASE 170 U/L (40-129); ALT/SGPT 18 U/L (7.0-40); AST/SGOT 40 U/L (<34); BILIRUBIN,TOTAL 0.3 MG/DL (0.3-1.2); BLOOD UREA NITROGEN 106 MG/DL (9-23); CALCIUM LEVEL 5.5 MG/DL (8.5-10.1); CARBON DIOXIDE LEVEL 22 MMOL/L (20-31); CHLORIDE LEVEL 96 MMOL/L (98-107); CREATININE FOR GFR 2.71 MG/DL (0.70-1.30); FERRITIN 3900.3 NG/ML (10.5-307.3); FOLATE > 24.0 NG/ML (>5.4); GLUCOSE, FASTING 122 MG/DL (60-100); POTASSIUM SERUM 4.2 MMOL/L (3.5-5.1); SODIUM LEVEL 131 MMOL/L (136-145); TOTAL PROTEIN 5.8 G/DL (5.7-8.2); VITAMIN B12 LEVEL > 2000 PG/ML (211-911)
== END ==
LOC: M LAB REF 15:23
PROVIDERS: ATTEND Specialist
DX: C34.90 Malignant neoplasm of unspecified part of unspecified bronchus or lung (principal)